=== PATIENT | female | born 1960 | race Caucasian/White ===

== ENCOUNTER 2022-06-07 11:01 | Inpatient (IN) ==
[2022-06-07] MEDS ORDERED: IOPAMIDOL 100 ML BOTTLE IV ONE (11:02)
--- NOTE | 2022-06-07 11:12 | Emergency Department Note ---
HPI General Chief complaint: Shortness of Breath/Dyspnea Stated complaint: oxygen check Time Seen by Provider: 06/07/22 11:11 Source: patient Mode of arrival: ambulatory Limitations: no limitations History of Present Illness HPI Narrative: Narrative: This patient presents with complaint of shortness of breath. Patient reports she has had gradually progressive symptoms over the last couple of weeks. Initially she had some upper congestion consistent with a cold. She did take 2 home COVID tests which were negative. She reports that her symptoms gradually seem to improve and she was able to return to work. Within a couple of days she seemed to have some symptoms settled into her chest consistent with a no nproductive, wet sounding cough. Since then she has had gradually worsening shortness of breath which has become so severe that she has been unable to complete simple tasks such as walking a few steps without having to stop and try and catch her breath. She denies having any chest pain other than some discomfort with episodes of coughing. She has not really had any productive cough. She has not felt febrile or chilled. She has no prior significant cardiac history other than hypertension and high cholesterol. She did smoke for several decades and quit about 5 to 6 years ago. She does see her doctor regularly and has never been diagnosed with COPD. She has no prior history of asthma. She has never had any significant episodes of pneumonia that she can recall. Patient does arrive here to the emergency department with room air saturations of 79% as well as tachycardia. Related Data Home Medications Medication Instructions Recorded Confirmed levothyroxine 88 mcg tablet 88 mcg PO HS 03/18/17 06/07/22 pioglitazone 30 mg tablet 30 mg PO DAILY 03/18/17 06/07/22 insulin aspart U-100 100 unit/mL See Rx Instructions subcut QDAY 04/08/18 06/07/22 subcutaneous solution (Novolog U-100 Insulin aspart) melatonin 5 mg tablet 5 mg PO HS 04/08/18 06/07/22 Lactobacillus rhamnosus GG 10 1 cap PO QDAY 04/30/18 06/07/22 billion cell capsule (Culturelle) ascorbic acid (vitamin C) 1,000 mg 2 g PO QDAY 04/30/18 06/07/22 tablet cinnamon bark 500 mg capsule 1,000 mg PO QDAY 04/30/18 06/07/22 cyanocobalamin (vitamin B-12) 1,000 mcg PO QDAY 04/30/18 06/07/22 1,000 mcg capsule insulin detemir U-100 100 unit/mL See Rx Instructions .Route .COMPLEX 04/30/18 06/07/22 subcutaneous solution valerian root 500 mg capsule 1,000 mg PO HS 04/30/18 06/07/22 amlodipine 5 mg tablet 5 mg PO QDAY 06/07/22 06/07/22 blood sugar diagnostic 06/07/22 06/07/22 citalopram 20 mg tablet 20 mg PO QDAY 06/07/22 06/07/22 insulin syringe-needle U-100 0.5 06/07/22 06/07/22 mL 30 gauge x 5/16" losartan 50 mg tablet 100 mg PO DAILY 06/07/22 06/07/22 ayoyoyhl-uiv-yartb ac 400 1 tab PO DAILY 06/07/22 06/07/22 mcg-calcium carb 500 mg-vit K1 20 mcg tablet omeprazole 40 mg capsule,delayed 40 mg PO QDAY 06/07/22 06/07/22 release psyllium husk 0.4 gram capsule 0.4 g PO QDAY PRN Constipation 06/07/22 06/07/22 (Metamucil) Allergies Allergy/AdvReac Type Severity Reaction Status Date / Time codeine AdvReac Intermediate Gastrointestinal Verified 06/07/22 11:12 Upset Review of Systems ROS ROS Narrative: Narrative: Pertinent positives and negatives as noted in HPI. All other systems reviewed and negative. 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) Infected abrasion of left foot (Acute) Infected abrasion of right foot (Acute) Pain, joint, knee, left (Chronic) Stopped smoking (Chronic) Abdominal wall hernia (Chronic) Reactive airway disease (Chronic) Occipital neuralgia (Chronic) Hyperkalemia (Chronic) Hypothyroidism (Chronic) Hypertension (Chronic) Osteopenia (Chronic) GERD (gastroesophageal reflux disease) (Chronic) Osteoarthritis (arthritis due to wear and tear of joints) (Chronic) Medical History Abdominal wall hernia GERD (gastroesophageal reflux disease) Hyperkalemia Hypertension Hypothyroidism senior care current use of insulin Occipital neuralgia Osteoarthritis (arthritis due to wear and tear of joints) Osteopenia Pain, joint, knee, left Reactive airway disease Stopped smoking White coat syndrome with diagnosis of hypertension Surgical History History of hernia surgery Spigelian History of hysterectomy History of repair of rotator cuff Hx of inguinal hernia surgery Right and Left Family History Mother Breast cancer H/O left mastectomy Diabetes Father , from leukemia at age 66 Leukemia Social History Smoking Status: Never smoker Alcohol Intake Frequency: does not drink Substance Use: does not use Exam Narrative Narrative: Narrative: Vital signs noted General: Moderate distress. Skin: Warm. Dry. No rash. Normal color. Eyes: PERRL. EOMI. Mouth: Membranes moist. Normal inspection. Neck: Good ROM. No meningeal signs. Supple. Cardiovascular: Tachycardia no murmur. Respiratory: Tachypnea. Decreased lung sounds throughout. Gastrointestinal: Abdomen soft. No tenderness. No distention. Normal bowel sounds. No rebound tenderness or guarding. Back: Normal inspection. No CVA tenderness. No midline tenderness. Extremities: No tenderness. No swelling. No erythema. No edema. Good peripheral pulses x 4 Neurological: No focal neurological deficits observed. Alert. Oriented x 3 General Limitations: no limitations Course Course Course Narrative: The following orders are placed and reviewed by myself: Patient placed on supplemental oxygen and is able to maintain O2 saturations above 90% at rest with 3 L via nasal cannula CBC and CHEM panel reviewed, white count elevated at 14,000. Lactic acid is below 2 Chest x-ray shows large consolidation to the right lower lobe as well as right upper lobe. Antibiotics are initiated after blood cultures are obtained. Patient medicated with azithromycin and Rocephin. EKG shows sinus tachycardia rate of 105. QRS complexes are narrow and at regular intervals. No ST elevation or depression noted. CTA chest is obtained due to concern for possible pulmonary embolism versus lung mass. CT report by radiology to be significant for right upper and lower lobe infiltrates. No pulm embolism is identified. Patient discussed with hospitalist service for admission of pneumonia with hypoxia. Vital Signs Vital signs: Vital Signs Temperature 99 F 06/07/22 11:10 Pulse Rate 114 H 03/03/23 11:10 Respiratory Rate 25 H 06/07/22 11:10 Blood Pressure 98/73 06/07/22 11:10 Pulse Oximetry (%) 79 L 06/07/22 11:10 Oxygen Delivery Method Room Air 06/07/22 11:10 Temperature 99 F 06/07/22 19:23 Pulse Rate 123 H 06/07/22 20:20 Respiratory Rate 26 H 06/07/22 20:20 Blood Pressure 125/64 06/07/22 19:23 Pulse Oximetry (%) 89 L 06/07/22 20:20 Oxygen Delivery Method Nasal Cannula 06/07/22 20:20 Oxygen Flow Rate (L/min) 3.5 06/07/22 20:20 MDM MDM Narrative Medical decision making narrative: Narrative: Lab Data 06/07/22 11:51 06/07/22 11:51 Labs: Lab Results 06/07/22 06/07/22 06/07/22 Range/Units 11:51 11:51 11:51 WBC 14.0 H (4.5-11.0) K/mcL RBC 4.34 (3.59-5.38) M/mcL Hgb 12.1 (11.2-15.7) g/dL Hct 37.5 (34.1-44.9) % MCV 86.4 (80.0-100.0) fL MCH 27.9 (26.0-34.0) pg MCHC 32.3 (31.0-36.0) g/dL RDW 16.2 H (11.5-14.5) % Plt Count 266 (140-440) K/mcL MPV 9.7 (8.8-12.5) fL Immature Gran % (Auto) 0.3 (0.0-0.5) % Neut % (Auto) 88.3 H (38.0-78.0) % Lymph % (Auto) 3.3 L (15.5-49.0) % Hawkins % (Auto) 7.1 (1.0-12.0) % Eos % (Auto) 0.6 (0.0-7.0) % Baso % (Auto) 0.4 (0.0-2.0) % Lymph # (Auto) 0.46 L (1.50-4.80) K/mcL Hawkins # (Auto) 0.99 H (0.10-0.90) K/mcL Eos # (Auto) 0.08 (0.00-0.70) K/mcL Baso # (Auto) 0.05 (0.00-0.30) K/mcL Immature Gran # 0.04 (0.00-0.05) K/mcl Absolute Neutrophils 12.36 H (1.80-8.00) K/mcL POC VBG pH (7.32-7.42) POC VBG pCO2 at Temp (41-51) POC VBG pO2 (25-40) POC VBG HCO3 (24-28) POC VBG Total CO2 (25-29) POC Venous O2 Sat (40-70) POC VBG Base Excess (-2-2) VBG Lactic Acid (0.5-2) Sodium 129 L (133-145) mmol/L Potassium 4.6 (3.3-5.1) mmol/L Chloride 92 L (96-108) mmol/L Carbon Dioxide 25 (22-30) mmol/L Anion Gap 12.0 (8.0-16.0) BUN 31 H (8-23) mg/dL Creatinine 1.0 (0.6-1.1) mg/dL GFR Calculation 60 Glucose 278 H (70-105) mg/dL Hemoglobin A1c (4.0-6.0) % Hgb Estim Average Glucose mg/dL Calcium 9.4 (8.6-10.4) mg/dL Total Bilirubin 0.3 (0.1-1.0) mg/dL AST 25 (<32) U/L ALT 19 (<40) U/L Alkaline Phosphatase 119 H (39-117) U/L Troponin T (<0.03) ng/mL C-Reactive Protein 15.60 H (0.03-0.80) mg/dL Total Protein 6.5 (5.9-8.4) gm/dL Albumin 3.4 (3.2-5.2) gm/dL Globulin 3.1 (2.2-3.7) gm/dL Albumin/Globulin Ratio 1.1 (1.0-2.3) Procalcitonin (<0.10) ng/mL 03/03/23 03/03/23 03/03/23 Range/Units 11:51 11:51 11:52 WBC (4.5-11.0) K/mcL RBC (3.59-5.38) M/mcL Hgb (11.2-15.7) g/dL Hct (34.1-44.9) % MCV (80.0-100.0) fL MCH (26.0-34.0) pg MCHC (31.0-36.0) g/dL RDW (11.5-14.5) % Plt Count (140-440) K/mcL MPV (8.8-12.5) fL Immature Gran % (Auto) (0.0-0.5) % Neut % (Auto) (38.0-78.0) % Lymph % (Auto) (15.5-49.0) % Hawkins % (Auto) (1.0-12.0) % Eos % (Auto) (0.0-7.0) % Baso % (Auto) (0.0-2.0) % Lymph # (Auto) (1.50-4.80) K/mcL Hawkins # (Auto) (0.10-0.90) K/mcL Eos # (Auto) (0.00-0.70) K/mcL Baso # (Auto) (0.00-0.30) K/mcL Immature Gran # (0.00-0.05) K/mcl Absolute Neutrophils (1.80-8.00) K/mcL POC VBG pH (7.32-7.42) POC VBG pCO2 at Temp (41-51) POC VBG pO2 (25-40) POC VBG HCO3 (24-28) POC VBG Total CO2 (25-29) POC Venous O2 Sat (40-70) POC VBG Base Excess (-2-2) VBG Lactic Acid (0.5-2) Sodium (133-145) mmol/L Potassium (3.3-5.1) mmol/L Chloride (96-108) mmol/L Carbon Dioxide (22-30) mmol/L Anion Gap (8.0-16.0) BUN (8-23) mg/dL Creatinine (0.6-1.1) mg/dL GFR Calculation Glucose (70-105) mg/dL Hemoglobin A1c 8.6 H (4.0-6.0) % Hgb Estim Average Glucose 200 mg/dL Calcium (8.6-10.4) mg/dL Total Bilirubin (0.1-1.0) mg/dL AST (<32) U/L ALT (<40) U/L Alkaline Phosphatase (39-117) U/L Troponin T < 0.01 (<0.03) ng/mL C-Reactive Protein (0.03-0.80) mg/dL Total Protein (5.9-8.4) gm/dL Albumin (3.2-5.2) gm/dL Globulin (2.2-3.7) gm/dL Albumin/Globulin Ratio (1.0-2.3) Procalcitonin 1.43 H (<0.10) ng/mL 06/07/22 Range/Units 12:01 WBC (4.5-11.0) K/mcL RBC (3.59-5.38) M/mcL Hgb (11.2-15.7) g/dL Hct (34.1-44.9) % MCV (80.0-100.0) fL MCH (26.0-34.0) pg MCHC (31.0-36.0) g/dL RDW (11.5-14.5) % Plt Count (140-440) K/mcL MPV (8.8-12.5) fL Immature Gran % (Auto) (0.0-0.5) % Neut % (Auto) (38.0-78.0) % Lymph % (Auto) (15.5-49.0) % Hawkins % (Auto) (1.0-12.0) % Eos % (Auto) (0.0-7.0) % Baso % (Auto) (0.0-2.0) % Lymph # (Auto) (1.50-4.80) K/mcL Hawkins # (Auto) (0.10-0.90) K/mcL Eos # (Auto) (0.00-0.70) K/mcL Baso # (Auto) (0.00-0.30) K/mcL Immature Gran # (0.00-0.05) K/mcl Absolute Neutrophils (1.80-8.00) K/mcL POC VBG pH 7.43 H (7.32-7.42) POC VBG pCO2 at Temp 39.6 L (41-51) POC VBG pO2 43 H (25-40) POC VBG HCO3 26.1 (24-28) POC VBG Total CO2 27.0 (25-29) POC Venous O2 Sat 80.0 H (40-70) POC VBG Base Excess 2.0 (-2-2) VBG Lactic Acid 0.6 (0.5-2) Sodium (133-145) mmol/L Potassium (3.3-5.1) mmol/L Chloride (96-108) mmol/L Carbon Dioxide (22-30) mmol/L Anion Gap (8.0-16.0) BUN (8-23) mg/dL Creatinine (0.6-1.1) mg/dL GFR Calculation Glucose (70-105) mg/dL Hemoglobin A1c (4.0-6.0) % Hgb Estim Average Glucose mg/dL Calcium (8.6-10.4) mg/dL Total Bilirubin (0.1-1.0) mg/dL AST (<32) U/L ALT (<40) U/L Alkaline Phosphatase (39-117) U/L Troponin T (<0.03) ng/mL C-Reactive Protein (0.03-0.80) mg/dL Total Protein (5.9-8.4) gm/dL Albumin (3.2-5.2) gm/dL Globulin (2.2-3.7) gm/dL Albumin/Globulin Ratio (1.0-2.3) Procalcitonin (<0.10) ng/mL Discharge Plan Patient/Caregiver Discharge Instructions Pt seen by PAPER CLEANER/PA only: Yes Clinical Impression: Pneumonia, Hypoxia Patient Disposition: Xfer As Outpt/Obs ([facility]) Discharge Date/Time: 06/07/22 18:49
[2022-06-07] MEDS ORDERED: IPRATROPIUM/ALBUTEROL 3 ML AMPUL.NEB NEB ONE (12:03)
[2022-06-07 12:54] LABS: Basophils # (Auto) 0.05 K/mcL (0.00-0.30); Basophils % (Auto) 0.4 % (0.0-2.0); Eosinophils # (Auto) 0.08 K/mcL (0.00-0.70); Eosinophils % (Auto) 0.6 % (0.0-7.0); Hematocrit 37.5 % (34.1-44.9); Hemoglobin 12.1 g/dL (11.2-15.7); Lymphocytes # (Auto) 0.46 K/mcL (1.50-4.80); Lymphocytes % (Auto) 3.3 % (15.5-49.0); Mean Cell Volume 86.4 fL (80.0-100.0); Mean Corpuscular HGB Conc 32.3 g/dL (31.0-36.0); Mean Platelet Volume 9.7 fL (8.8-12.5); Monocytes # (Auto) 0.99 K/mcL (0.10-0.90); Monocytes % (Auto) 7.1 % (1.0-12.0); Neutrophils % (Auto) 88.3 % (38.0-78.0); Platelet Count 266 K/mcL (140-440); RBC 4.34 M/mcL (3.59-5.38); Red Cell Distribution Width 16.2 % (11.5-14.5)
[2022-06-07] MEDS ORDERED: cefTRIAXone 1 GM VIAL IV ONE (12:58)
[2022-06-07] MEDS ORDERED: AZITHROMYCIN 500 MG in DEXTROSE 5% IN WATER 250 ML IV ONE (12:58)
--- NOTE | 2022-06-07 13:02 | XRay Report ---
CLINICAL INFORMATION: Hypoxia COMPARISON: Two-view chest x-ray 06/07/2008. TECHNIQUE: Portable FINDINGS: The heart size, mediastinum and pulmonary vessels are unremarkable. A 6 cm mass or masslike infiltrate has developed in the right perihilar region. Moderate curvilinear infiltrate or, less likely, infiltrate-like mass also seen in the right lung base.. There are no effusions. The bones and soft tissues are within normal limits. IMPRESSION: 6 cm mass versus masslike infiltrate in right perihilar region and a 8 cm curvilinear mass versus masslike infiltrate in the right lung base. Suggest chest CT Interpreted and Authenticated by: Franco Mcdermott 06/07/22
[2022-06-07 13:14] LABS: ALT/SGPT 19 U/L (<40); AST/SGOT 25 U/L (<32); Albumin 3.4 gm/dL (3.2-5.2); Albumin/Globulin Ratio 1.1 (1.0-2.3); Alkaline Phosphatase 119 U/L (39-117); Bilirubin,Total 0.3 mg/dL (0.1-1.0); Blood Urea Nitrogen 31 mg/dL (8-23); Calcium 9.4 mg/dL (8.6-10.4); Carbon Dioxide 25 mmol/L (22-30); Chloride 92 mmol/L (96-108); Globulin 3.1 gm/dL (2.2-3.7); Glomerular Filtration Rate 60; Glucose 278 mg/dL (70-105)
--- NOTE | 2022-06-07 15:13 | Cat Scan Report ---
CLINICAL INFORMATION: Possible right hilar mass on plain film. Shortness of breath and cough and fever COMPARISON: Plain film 06/07/2022 TECHNIQUE: 80ml of Isovue-370 were injected intravenously. Using SmartPrep to maximize pulmonary artery opacification, .625mm helical slices were obtained from the lung apices through the lung bases. Following reconstruction, 2.5 mm sagittal, coronal, and axial reformations were processed. The exam was reviewed at mediastinal, lung, and bone windows. The exam was performed using radiation dose optimization techniques including, but not limited to, automated exposure control, adjustment of the mA and/or kV according to patient size and use of iterative reconstruction technique. FINDINGS: Pulmonary parenchymal windows show mild centrilobular emphysema featuring chronic bronchitis with elevated lung via is wall thickening/dilatation of bronchi and multiple small bullae predominantly within the upper lobes. There is a moderate consolidated infiltrate, likely pneumonia, in the posterior segment of the left upper lobe. Infiltrate respects the major fissure which would militate against malignancy. A moderate lesion consolidated infiltrate is also present in the posterior and lateral basilar segments of the right lower lobe with a small rounded satellite infiltrate more superiorly. Very small patchy infiltrate is seen in the posterior basilar segment left lower lobe.. Pleural spaces are unremarkable-no effusions. Mediastinal windows show the heart is grossly normal in size and configuration. The pulmonary arteries are normal diameter and well-opacified without evidence of embolus. Thoracic aorta is also normal diameter and well-opacified. There are 4-5 mildly enlarged lymph nodes in the right hilum and pericarinal region ranging up to 18 mm. These likely represent reactive lymph nodes related to infection. Esophagus is grossly normal. The thyroid is unremarkable. Bones and soft tissues the chest wall are normal. Images through the superior abdomen are unremarkable. IMPRESSION: 1. No evidence of pulmonary embolus. 2. Moderate consolidated alveolar infiltrate in the posterior segment of the right upper lobe and moderate consolidated alveolar infiltrate in the posterior and lateral basilar segment of the right lower lobe. Suggest follow-up chest x-ray 2-3 weeks to ensure complete resolution. 3. Moderate centrilobular emphysema Interpreted and Authenticated by: Franco Mcdermott 06/07/22
[2022-06-07] MEDS ORDERED: 0.9 % SODIUM CHLORIDE 1,000 ML IV ONE (15:42)
--- NOTE | 2022-06-07 16:20 | Internal Med History&Physical ---
HPI History of Present Illness Patient information: Note initiated : 06/07/22 at 4:01 pm Service Date, if different from initiated Date: [] Patient: Rossana Rapp a 61 y/o F admitted on for oxygen check. Chief Complaint: [] History of present illness: Ms. Rapp is a 61 year old F Presents to the to the urgent care for rhinorrhea severe headache insomnia as well as increased cough and shortness of breath for the past 3 days and hypoxia. Patient was then sent to the ER for hypoxia. Patient has taken a home COVID test which were negative x2. Originally she had a cold about a week ago which improved and then she went back to work but within a couple days she seemed to worsen again And her cough worsened feeling like it went down into her chest. She became significantly short of breath with walking. She can hardly sleep and has developed severe headache from all the coughing, which coughing keeps her up at night. She was a former smoker but does not carry an official diagnosis of COPD. In the ED she had saturations of 79% with a leukocytosis. She was hyponatremic hypochloremic. She had elevated blood glucose. She was tachycardic and tachypneic. CTA of the chest was done given the masslike findings on chest x-ray. The CTA showed no PEs but did show moderate consolidated infiltrates in the upper lobe as well as the lower lobe of the right side. CT also showed moderate emphysema Flu/RSV/COVID negative in ED She did have fevers and chills with a cold but has not had any of those for the past couple days. She has some pleuritic chest pain Her cough is described as a phlegmy cough but she is unable to cough up anythi ng. Review of Systems: Pertinent positives as above. Denies fever/chills/nausea/vomiting/abdominal pain/diarrhea. Remaining 10 point review of system reviewed negative PHYSICAL EXAM General: Alert, Awake, No acute Distress Eyes/N/T: EOMI, no scleral icterus, PERRL, dry MM Head/Neck: neck supple, full ROM, normocephalic atraumatic CV: RRR, No murmurs, normal s1/s2 Pulm: Diminished b/l but especially on the right, right-sided Rales/rhonchi, no wheezing/rhonchi/rales, no respiratory distress Abd: soft, nontender, +BS x4 Ext: no clubbing/cyanosis/edema, nontender Neuro: Alert, no focal deficits, moves all extremities, CN 2-12 grossly intact, sensations intact b/l upper/lower Psychiatric: Skin: warm/dry, normal color PFSH PFSH All Active Problems 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) Infected abrasion of left foot (Acute) Infected abrasion of right foot (Acute) Pain, joint, knee, left (Chronic) Stopped smoking (Chronic) Abdominal wall hernia (Chronic) Reactive airway disease (Chronic) Occipital neuralgia (Chronic) Hyperkalemia (Chronic) Hypothyroidism (Chronic) Hypertension (Chronic) Osteopenia (Chronic) GERD (gastroesophageal reflux disease) (Chronic) Osteoarthritis (arthritis due to wear and tear of joints) (Chronic) Medical History Abdominal wall hernia GERD (gastroesophageal reflux disease) Hyperkalemia Hypertension Hypothyroidism residential current use of insulin Occipital neuralgia Osteoarthritis (arthritis due to wear and tear of joints) Osteopenia Pain, joint, knee, left Reactive airway disease Stopped smoking White coat syndrome with diagnosis of hypertension Surgical History History of hernia surgery Spigelian History of hysterectomy History of repair of rotator cuff Hx of inguinal hernia surgery Right and Left Family History Mother Breast cancer H/O left mastectomy Diabetes Father , from leukemia at age 66 Leukemia Social History marital status: single occupational status: employed smoking status: Never smoker alcohol intake frequency: does not drink substance use type: does not use MEDS/ALLERGIES Home Medications and Allergies Home Medications Medication Instructions Recorded Confirmed Type levothyroxine 88 mcg tablet 88 mcg PO HS 03/18/17 06/07/22 History pioglitazone 30 mg tablet 30 mg PO DAILY 03/18/17 06/07/22 History blood sugar diagnostic (OneTouch #10 ea 04/08/18 06/07/22 History Ultra Blue Test Strip) insulin aspart U-100 100 unit/mL See Rx Instructions subcut QDAY 04/08/18 06/07/22 History subcutaneous solution (Novolog U-100 Insulin aspart) insulin syr/ndl U100 half madeleine 0.3 #100 ea 04/08/18 06/07/22 History mL 31 gauge x 5/16" insulin syringes (disposable) miscellaneous 04/08/18 06/07/22 History melatonin 5 mg tablet 5 mg PO HS 04/08/18 06/07/22 History Lactobacillus rhamnosus GG 10 1 cap PO QDAY 04/30/18 06/07/22 History billion cell capsule (Culturelle) Sleepy Time Herbal Supplement PO QHS 04/30/18 06/07/22 History ascorbic acid (vitamin C) 1,000 mg 2 g PO QDAY 04/30/18 06/07/22 History tablet cinnamon bark 500 mg capsule 1,000 mg PO QDAY 04/30/18 06/07/22 History cyanocobalamin (vitamin B-12) 1,000 mcg PO QDAY 04/30/18 06/07/22 History 1,000 mcg capsule insulin detemir U-100 100 unit/mL See Rx Instructions .Route .COMPLEX 04/30/18 06/07/22 History subcutaneous solution omega-3 950 mg-dha 320 mg-epa 630 3 cap PO QDAY 04/30/18 06/07/22 History mg-fish oil 1,360 mg capsule valerian root 500 mg capsule 1,000 mg PO HS 04/30/18 06/07/22 History psypovjqlyml-nzxnvvak-ubcrmqo-folic tab PO 06/02/18 06/07/22 History acid 400 mcg-vit K1 20 mcg tablet (One-A-Day Women's 50 Plus) amlodipine 5 mg tablet 5 mg PO QDAY 06/07/22 06/07/22 History citalopram 20 mg tablet 20 mg PO QDAY 06/07/22 06/07/22 History losartan 50 mg tablet 50 mg PO BID 06/07/22 06/07/22 History omeprazole 40 mg capsule,delayed 40 mg PO QDAY 06/07/22 06/07/22 History release psyllium [Metamucil] PO QDAY PRN 06/07/22 06/07/22 History Allergies Allergy/AdvReac Type Severity Reaction Status Date / Time codeine AdvReac Intermediate Gastrointestinal Verified 06/07/22 11:12 Upset EXAM Constitutional Vitals: Temp Pulse Resp BP Pulse Ox O2 Del Method O2 Flow Rate 99 F 95 H 16 105/44 94 Nasal Cannula 4 06/07/22 11:10 06/07/22 15:31 06/07/22 15:31 06/07/22 15:31 06/07/22 15:31 06/07/22 13:40 06/07/22 13:40 DATA Data Completed and Pending Labs: Labs from last 24 hours 06/07/22 06/07/22 06/07/22 12:01 11:52 11:51 WBC RBC Hgb Hct MCV MCH MCHC RDW Plt Count MPV Immature Gran % (Auto) Neut % (Auto) Lymph % (Auto) [place] % (Auto) Eos % (Auto) Baso % (Auto) Lymph # (Auto) [place] # (Auto) Eos # (Auto) Baso # (Auto) Immature Gran # Absolute Neutrophils POC VBG pH 7.43 H POC VBG pCO2 at Temp 39.6 L POC VBG pO2 43 H POC VBG HCO3 26.1 POC VBG Total CO2 27.0 POC Venous O2 Sat 80.0 H POC VBG Base Excess 2.0 VBG Lactic Acid 0.6 Sodium 129 L Potassium 4.6 Chloride 92 L Carbon Dioxide 25 Anion Gap 12.0 BUN 31 H Creatinine 1.0 GFR Calculation 60 Glucose 278 H Calcium 9.4 Total Bilirubin 0.3 AST 25 ALT 19 Alkaline Phosphatase 119 H Troponin T < 0.01 Total Protein 6.5 Albumin 3.4 Globulin 3.1 Albumin/Globulin Ratio 1.1 06/07/22 11:51 WBC 14.0 H RBC 4.34 Hgb 12.1 Hct 37.5 MCV 86.4 MCH 27.9 MCHC 32.3 RDW 16.2 H Plt Count 266 MPV 9.7 Immature Gran % (Auto) 0.3 Neut % (Auto) 88.3 H Lymph % (Auto) 3.3 L [place] % (Auto) 7.1 Eos % (Auto) 0.6 Baso % (Auto) 0.4 Lymph # (Auto) 0.46 L [place] # (Auto) 0.99 H Eos # (Auto) 0.08 Baso # (Auto) 0.05 Immature Gran # 0.04 Absolute Neutrophils 12.36 H POC VBG pH POC VBG pCO2 at Temp POC VBG pO2 POC VBG HCO3 POC VBG Total CO2 POC Venous O2 Sat POC VBG Base Excess VBG Lactic Acid Sodium Potassium Chloride Carbon Dioxide Anion Gap BUN Creatinine GFR Calculation Glucose Calcium Total Bilirubin AST ALT Alkaline Phosphatase Troponin T Total Protein Albumin Globulin Albumin/Globulin Ratio A/P Narrative A/P Narrative: A: *Acute hypoxic respiratory failure: *Pneumonia (right-sided): *Sepsis: *Volume depletion: *Hyponatremia: *DM: with hyperglycemia on admit -a1c *CKD II: *HTN: *COPD(not on O2@home): former smoker *Hypothyroid: Continue levothyroxine *GERD: *Depression: * P: -IV abx, pending BC/SC -francisca pct/crp, check strep/legionella -O2 supp, wean as able -IS/Acapella, prn nebs, RT -IVF, monitor renal fxn, uop - -Continue home Norvasc/ARB -Basal and SSI, check a1c -Home medication reconciliation -PT/OT -f/u imaging in 2-3 weeks to follow resolution of CT findings -ppx: Lovenox / home ppi Time Spent With Patient Time: Total time spent is greater than 50% in coordination of care (as documented) at patient's floor/unit and/or counseling patient: Initial: Total time with patient: 75 - 90 minutes
[2022-06-07] MEDS ORDERED: INSULIN LISPRO 1 UNIT/0.01 ML UNIT SQ ONE (17:00)
[2022-06-07] MEDS ORDERED: 0.9 % SODIUM CHLORIDE 1,000 ML IV SCH (18:52)
[2022-06-07] MEDS ORDERED: POLYETHYLENE GLYCOL 3350 17 GM PACKET PO PRN (18:52)
[2022-06-07] MEDS ORDERED: SENNOSIDES 1 TABLET PO PRN (18:52)
[2022-06-07] MEDS ORDERED: POTASSIUM CHLORIDE 40 MEQ in DEXTROSE 5% IN WATER 500 ML IV PRN (18:52)
[2022-06-07] MEDS ORDERED: DEXTROSE 31 GM ORAL.SUSP PO PRN (18:52)
[2022-06-07] MEDS ORDERED: IPRATROPIUM/ALBUTEROL 3 ML AMPUL.NEB NEB PRN (18:52)
[2022-06-07] MEDS ORDERED: cefTRIAXone 1 GM in DEXTROSE 5% IN WATER 50 ML IV SCH (18:52)
[2022-06-07] MEDS ORDERED: POTASSIUM CHLORIDE 20 MEQ TABLET PO PRN ×2 (18:52)
[2022-06-07] MEDS ORDERED: HYDROcodone/APAP 5/325MG TABLET PO PRN (18:52)
[2022-06-07] MEDS ORDERED: ONDANSETRON 4 MG/2 ML VIAL IV PRN (18:52)
[2022-06-07] MEDS ORDERED: ACETAMINOPHEN 325 MG TABLET PO PRN (18:52)
[2022-06-07] MEDS ORDERED: MAGNESIUM SULFATE 2 GM/50 ML BAG IV PRN (18:52)
[2022-06-07] MEDS ORDERED: DEXTROSE 50% 50 ML VIAL IV PRN (18:52)
[2022-06-07 19:42] LABS: Estimated Average Glucose(eAG) 200 mg/dL; Hemoglobin A1C 8.6 % Hgb (4.0-6.0)
[2022-06-07] MEDS: IPRATROPIUM/ALBUTEROL 3 ML AMPUL.NEB NEB SCH (20:16)
[2022-06-07] MEDS: MELATONIN 3 MG TABLET PO SCH (20:44)
[2022-06-07] MEDS: INSULIN LISPRO 1 UNIT/0.01 ML UNIT SQ SCH ×2 (20:45→22:51)
[2022-06-07] MEDS: 0.9 % SODIUM CHLORIDE 10 ML SYRINGE IV SCH (20:46)
[2022-06-07] MEDS: guaiFENesin/CODEINE 10 ML UDC PO PRN (20:46)
[2022-06-08] MEDS: IPRATROPIUM/ALBUTEROL 3 ML AMPUL.NEB NEB SCH ×3 (02:49→20:04)
[2022-06-08] MEDS: 0.9 % SODIUM CHLORIDE 10 ML SYRINGE IV SCH ×3 (06:06→20:35)
[2022-06-08] MEDS: guaiFENesin/CODEINE 10 ML UDC PO PRN (06:06)
[2022-06-08] MEDS: cefTRIAXone 1 GM VIAL IV SCH (06:06)
[2022-06-08 06:33] LABS: Basophils # (Auto) 0.04 K/mcL (0.00-0.30); Basophils % (Auto) 0.3 % (0.0-2.0); Eosinophils # (Auto) 0.04 K/mcL (0.00-0.70); Eosinophils % (Auto) 0.3 % (0.0-7.0); Hematocrit 35.6 % (34.1-44.9); Hemoglobin 11.2 g/dL (11.2-15.7); Lymphocytes # (Auto) 1.06 K/mcL (1.50-4.80); Lymphocytes % (Auto) 8.8 % (15.5-49.0); Mean Cell Volume 88.6 fL (80.0-100.0); Mean Corpuscular HGB Conc 31.5 g/dL (31.0-36.0); Monocytes # (Auto) 1.45 K/mcL (0.10-0.90); Neutrophils % (Auto) 78.3 % (38.0-78.0); Platelet Count 266 K/mcL (140-440); RBC 4.02 M/mcL (3.59-5.38); Red Cell Distribution Width 16.4 % (11.5-14.5); WBC 12.1 K/mcL (4.5-11.0)
[2022-06-08 07:26] LABS: ALT/SGPT 37 U/L (<40); AST/SGOT 53 U/L (<32); Albumin 3.2 gm/dL (3.2-5.2); Albumin/Globulin Ratio 1.1 (1.0-2.3); Alkaline Phosphatase 149 U/L (39-117); Bilirubin,Direct < 0.2 mg/dL (0-0.3); Bilirubin,Total 0.3 mg/dL (0.1-1.0); Blood Urea Nitrogen 55 mg/dL (8-23); Calcium 8.9 mg/dL (8.6-10.4); Carbon Dioxide 19 mmol/L (22-30); Chloride 92 mmol/L (96-108); Globulin 2.8 gm/dL (2.2-3.7); Glomerular Filtration Rate 37; Glucose 396 mg/dL (70-105); Lactate Dehydrogenase 181 U/L (135-225); Triglycerides 93 mg/dL (<150); Uric Acid 6.6 mg/dL (2.5-8.0)
--- NOTE | 2022-06-08 07:30 | Internal Med Progress Note ---
SUBJECTIVE Subjective Patient information: Note initiated : 06/08/22 at 7:25 am Service Date, if different from initiated Date: [] Patient: Rossana Rapp a 61 y/o F admitted on 06/07/22 for oxygen check. Chief Complaint: [] Interval history: History of present illness: Ms. Rapp is a 61 year old F Presents to the to the urgent care for rhinorrhea severe headache insomnia as well as increased cough and shortness of breath for the past 3 days and hypoxia. Patient was then sent to the ER for hypoxia. Patient has taken a home COVID test which were negative x2. Originally she had a cold about a week ago which improved and then she went back to work but within a couple days she seemed to worsen again And her cough worsened feeling like it went down into her chest. She became significantly short of breath with walking. She can hardly sleep and has developed severe headache from all the coughing, which coughing keeps her up at night. She was a former smoker but does not carry an official diagnosis of COPD. In the ED she had saturations of 79% with a leukocytosis. She was hyponatremic hypochloremic. She had elevated blood glucose. She was tachycardic and tachypneic. CTA of the chest was done given the masslike findings on chest x-ray. The CTA showed no PEs but did show moderate consolidated infiltrates in the upper lobe as well as the lower lobe of the right side. CT also showed moderate emphysema Flu/RSV/COVID negative in ED She did have fevers and chills with a cold but has not had any of those for the past couple days. She has some pleuritic chest pain Her cough is described as a phlegmy cough but she is unable to cough up anything. 3/4 Still quite short of breath. Headache from cough which is slowly improving. Still tachycardic and tachypneic. On 2 to 3 L of oxygen. Leukocytosis. Acute kidney injury noted today. Acidosis. Elevated blood glucose and trying to clarify home insulin to start basal. Review of Systems: denies fever/chills/nausea/vomiting/chest or abdominal pain/cough/dyspnea/diarrhea. Otherwise see above. PHYSICAL EXAM General: Alert, Awake, No acute Distress Eyes/N/T: EOMI, no scleral icterus, PERRL, dry MM Head/Neck: neck supple, full ROM, CV: RRR, No murmurs, Pulm: Diminished b/l but more on right, right-sided Rales/rhonchi better, no wheezing no respiratory distress Abd: soft, nontender, +BS x4 Ext: no clubbing/cyanosis/edema, nontender Neuro: Alert, no focal deficits, moves all extremities, sensations intact b/l upper/lower Psychiatric: Skin: warm/dry, normal color Constitutional Vitals: Vital Signs Temp Pulse Resp BP Pulse Ox O2 Del Method O2 Flow Rate 98.6 F 93 H 19 126/60 94 Nasal Cannula 2.5 06/08/22 03:05 06/08/22 03:05 06/08/22 03:05 06/08/22 03:05 06/08/22 03:05 06/08/22 03:05 06/08/22 03:05 Period Temp Pulse Resp BP Sys/Ibarra Pulse Ox O2 Del Method O2 Flow Rate Last 24 Hr 98.6 F-99.3 F 25-123 16-40 85-148/44-104 79-99 Nasal Cannula- Room Air 2-4 Intake and Output 06/07/22 06/08/22 06/08/22 19:59 03:59 11:59 Intake Total 1250 800 Output Total 200 Balance 1250 600 Weight 56.019 kg 56.88 kg Intake & Output: Intake & Output 06/07/22 06/08/22 06/08/22 19:59 03:59 11:59 Intake Total 1250 800 Output Total 200 Balance 1250 600 Weight 56.019 kg 56.88 kg Intake: IV 1250 Sodium Chloride 0.9% 1,000 ml @ 1000 Wide Open IV [facility] Rx#: [id number] Zithromax 500 mg In Dextrose 5% 250 in Water 250 ml @ 250 mls/hr IV ONCE ONE Rx#:[id number] Oral 800 Output: Void Amount 200 Other: Urine Appearance Clear Clear Urine Color Yellow Yellow Urine Odor Normal Normal OBJ DATA Labs 06/08/22 05:52 06/07/22 11:51 Labs: Abnormal Lab Results 06/08/22 06/07/22 06/07/22 05:52 12:01 11:51 WBC 12.1 H RDW 16.4 H Neut % (Auto) 78.3 H Lymph % (Auto) 8.8 L Lymph # (Auto) 1.06 L [place] # (Auto) 1.45 H Absolute Neutrophils 9.45 H POC VBG pH 7.43 H POC VBG pCO2 at Temp 39.6 L POC VBG pO2 43 H POC Venous O2 Sat 80.0 H Sodium Chloride BUN Glucose Hemoglobin A1c 8.6 H Alkaline Phosphatase C-Reactive Protein Procalcitonin 06/07/22 06/07/22 06/07/22 11:51 11:51 11:51 WBC RDW Neut % (Auto) Lymph % (Auto) Lymph # (Auto) [place] # (Auto) Absolute Neutrophils POC VBG pH POC VBG pCO2 at Temp POC VBG pO2 POC Venous O2 Sat Sodium 129 L Chloride 92 L BUN 31 H Glucose 278 H Hemoglobin A1c Alkaline Phosphatase 119 H C-Reactive Protein 15.60 H Procalcitonin 1.43 H 06/07/22 11:51 WBC 14.0 H RDW 16.2 H Neut % (Auto) 88.3 H Lymph % (Auto) 3.3 L Lymph # (Auto) 0.46 L [place] # (Auto) 0.99 H Absolute Neutrophils 12.36 H POC VBG pH POC VBG pCO2 at Temp POC VBG pO2 POC Venous O2 Sat Sodium Chloride BUN Glucose Hemoglobin A1c Alkaline Phosphatase C-Reactive Protein Procalcitonin Meds: Medications Acetaminophen (Acetaminophen 325 Mg Tablet) 650 mg PO Q6HP PRN; Protocol PRN Reason: Per Pain Protocol/Fever > 101 Hydrocodone Bitart/Acetaminophen (Hydrocodone/Apap 5/325mg Tablet) 1 tab PO Q4HP PRN PRN Reason: PAIN LEVEL 3-6 Albuterol/Ipratropium (Ipratropium/Albuterol 3 Ml Ampul.Neb) 3 ml NEB Q8H [facility] Last Admin: 06/08/22 02:49 Dose: 3 ml Albuterol/Ipratropium (Ipratropium/Albuterol 3 Ml Ampul.Neb) 3 ml NEB Q4HP PRN PRN Reason: Shortness Of Breath Ceftriaxone Sodium (Ceftriaxone 1 Gm Vial) 1 gm IV Q24H [facility] Last Admin: 06/08/22 06:06 Dose: 1 gm Dextrose (Dextrose 50% 50 Ml Vial) 0 ml IV UD PRN PRN Reason: Per Sliding Scale Diagnostic Test (Pha) (Accu-Chek 1 Each Strip) 1 each FS ACHS [facility] Last Admin: 06/07/22 22:40 Dose: 1 each Diphenhydramine HCl (Diphenhydramine 25 Mg Capsule) 25 mg PO HSP PRN PRN Reason: Insomnia Enoxaparin Sodium (Enoxaparin 40 Mg/0.4 Ml Syringe) 40 mg SQ DAILY [facility] Glucose (Dextrose 31 Gm Oral.Susp) 15 gm PO PRN PRN PRN Reason: Hypoglycemia Guaifenesin/Codeine Phosphate (Guaifenesin/Codeine 10 Ml Udc) 10 ml PO Q4HP PRN PRN Reason: Cough Last Admin: 06/08/22 06:06 Dose: 10 ml Azithromycin 500 mg/ Dextrose 250 mls @ 250 mls/hr IV Q24H [facility]; Protocol Stop: 06/09/22 09:59 Potassium Chloride 40 meq/ (Dextrose) 520 mls @ 130 mls/hr IV UD PRN PRN Reason: Potassium < 3 Magnesium Sulfate (Magnesium Sulfate) 2 gm in 50 mls @ 50 mls/hr IV UD PRN PRN Reason: Magnesium </= 1.6 Sodium Chloride (Sodium Chloride 0.9%) 1,000 mls @ 75 mls/hr IV .[id number] [facility] Stop: 06/08/22 08:11 Last Admin: 06/07/22 20:44 Dose: 75 mls/hr Insulin Human Lispro (Insulin Lispro 1 Unit/0.01 Ml Unit) 0 unit SQ ACHS [facility]; Protocol Last Admin: 06/07/22 22:51 Dose: 10 units Melatonin (Melatonin 3 Mg Tablet) 3 mg PO QHS [facility] Last Admin: 06/07/22 20:44 Dose: 3 mg Ondansetron HCl (Ondansetron 4 Mg/2 Ml Vial) 4 mg IV Q4HP PRN PRN Reason: Nausea And Vomiting Polyethylene Glycol (Polyethylene Glycol 3350 17 Gm Packet) 17 gm PO DAILYP PRN PRN Reason: Constipation Potassium Chloride (Potassium Chloride 20 Meq Tablet) 40 meq PO UD PRN PRN Reason: Potssium is 3-3.5 Potassium Chloride (Potassium Chloride 20 Meq Tablet) 40 meq PO UD PRN PRN Reason: Potassium < 3 Senna (Sennosides 1 Tablet) 2 tab PO DAILYP PRN PRN Reason: Constipation Sodium Chloride (0.9 % Sodium Chloride 10 Ml Syringe) 10 ml IV Q8 [facility] Last Admin: 06/08/22 06:06 Dose: 10 ml A/P Narrative A/P Narrative: A: *Acute hypoxic respiratory failure: -on 3-4L NC *Pneumonia (right-sided): -strep ur ag neg *Bacteremia(GPC in pairs): 2/2 above *Sepsis: leukocytosis *Volume depletion: *Hyponatremia: *NIKOLAS on CKD II: *Met acidosis: *DM: with hyperglycemia on admit -a1c 8.6 *HTN: *COPD(not on O2@home): former smoker *Hypothyroid: Continue levothyroxine *GERD: *Depression: cont ssri P: -IV abx, pending BC/SC, serial BC, mrsa screen -fr[place] pct/crp, check strep/legionella -O2 supp, wean as able -IS/Acapella, prn nebs, RT -IVF, uop -monitor renal fxn, check ua, renal u/s, urine studies -Continue home Norvasc, hold ARB for nikolas -Basal and SSI, -PT/OT -f/u imaging in 2-3 weeks to follow resolution of CT findings -ppx: Lovenox / home ppi DNR Time Spent With Patient Time: Total time spent is greater than 50% in coordination of care (as documented) at patient's floor/unit and/or counseling patient: Subsequent: Total time with patient: 50 - 65 Minutes QUALITY VTE Deep Vein Thrombosis/Pulmonary Embolism Present on Admission: No
[2022-06-08] MEDS: amLODIPine 5 MG TABLET PO SCH (08:07)
[2022-06-08] MEDS: SODIUM BICARBONATE 650 MG TABLET PO SCH ×3 (08:07→20:34)
[2022-06-08] MEDS: OMEPRAZOLE 20 MG CAPSULE PO SCH (08:07)
[2022-06-08] MEDS: CITALOPRAM 20 MG TABLET PO SCH (08:07)
[2022-06-08] MEDS: INSULIN LISPRO 1 UNIT/0.01 ML UNIT SQ SCH ×6 (08:07→20:34)
[2022-06-08] MEDS: ENOXAPARIN 40 MG/0.4 ML SYRINGE SQ SCH (08:08)
[2022-06-08] MEDS ORDERED: AZITHROMYCIN 500 MG in DEXTROSE 5% IN WATER 250 ML IV SCH (09:00)
[2022-06-08] MEDS: INSULIN GLARGINE, HUMAN 1 UNIT/0.01 ML SQ SCH ×2 (10:05→20:35)
--- NOTE | 2022-06-08 12:23 | Ultrasound Report ---
CLINICAL INFORMATION: Acute renal failure COMPARISON: 05/01/2018 FINDINGS: Both kidneys are normal and symmetric in size, position, and configuration: The right is 11.4 x 5.6 cm and the left is 11.0 x 5.8 cm. Both kidneys are moderately hyperechoic compatible with medical renal disease. This has progressed from the previous exam 1.6 cm simple cyst present in the superior pole left kidney 1.3 cm simple cyst mid left kidney. No solid lesions, stones or hydronephrosis.. The arterial blood flow is grossly normal to both kidneys on color Doppler. Urinary bladder volume is 25 cc with no postvoid residual residual. No focal bladder lesions. IMPRESSION: Moderately hyperechoic kidneys compatible with medical renal disease. Interpreted and Authenticated by: Franco Mcdermott 06/08/22
[2022-06-08 12:41] LABS: Appearance,Urine CLOUDY (Clear); Bilirubin,Urine Negative (Negative); Color,Urine YELLOW; Culture Indicated,Urine yes; Glucose,Urine (UA) 150 mg/dL (Negative); Ketones,Urine 20 mg/dL (Negative); Leukocyte Esterase,Urine 500 /uL (Negative); Mucus,Urine FEW /hpf; Nitrate,Urine Negative (Negative); Protein,Urine Negative (Negative); Urine Blood 0.03 mg/dL (Negative); Urine Hyaline Cast 4 /lph (0-2); Urine RBC 4 /hpf (0-3); Urine Squamous Epithelial Cell < 1 /hpf (0-4); Urine Transitional Epi Cells < 1 /hpf (0-2); Urine WBC 170 /hpf (0-4); Urobilinogen,Urine Negative
[2022-06-08 12:54] LABS: Sodium, Urine Random 21 mmol/L
[2022-06-08] MEDS ORDERED: 0.9 % SODIUM CHLORIDE 1,000 ML IV SCH (13:00)
[2022-06-08] MEDS: diphenhydrAMINE 25 MG CAPSULE PO PRN (20:33)
[2022-06-08] MEDS: LEVOTHYROXINE 88 MCG TABLET PO SCH (20:33)
[2022-06-08] MEDS: MELATONIN 3 MG TABLET PO SCH (20:34)
[2022-06-08] MEDS ORDERED: MELATONIN 3 MG TABLET PO SCH (21:00)
[2022-06-08] MEDS ORDERED: QUEtiapine 25 MG TABLET PO ONE (22:56)
[2022-06-08] MEDS ORDERED: OLANZapine 5 MG TABLET PO PRN (22:58)
[2022-06-08] MEDS ORDERED: QUEtiapine 25 MG TABLET ONE (23:05)
[2022-06-09] MEDS ORDERED: OLANZapine 2.5 MG TABLET PO ONE (00:18)
[2022-06-09] MEDS: OLANZapine 5 MG TABLET PO PRN ×2 (00:21→07:49)
[2022-06-09] MEDS: IPRATROPIUM/ALBUTEROL 3 ML AMPUL.NEB NEB SCH ×3 (03:23→19:25)
[2022-06-09] MEDS: cefTRIAXone 1 GM VIAL IV SCH (05:50)
[2022-06-09] MEDS: 0.9 % SODIUM CHLORIDE 10 ML SYRINGE IV SCH ×3 (05:50→20:58)
[2022-06-09 07:09] LABS: Basophils # (Auto) 0.05 K/mcL (0.00-0.30); Basophils % (Auto) 0.5 % (0.0-2.0); Eosinophils # (Auto) 0.19 K/mcL (0.00-0.70); Hematocrit 36.4 % (34.1-44.9); Hemoglobin 11.4 g/dL (11.2-15.7); Lymphocytes % (Auto) 12.6 % (15.5-49.0); Mean Cell Volume 88.8 fL (80.0-100.0); Mean Corpuscular HGB Conc 31.3 g/dL (31.0-36.0); Mean Platelet Volume 9.6 fL (8.8-12.5); Monocytes # (Auto) 1.07 K/mcL (0.10-0.90); Monocytes % (Auto) 11.3 % (1.0-12.0); Neutrophils % (Auto) 73.1 % (38.0-78.0); Platelet Count 308 K/mcL (140-440); Red Cell Distribution Width 16.3 % (11.5-14.5); WBC 9.5 K/mcL (4.5-11.0)
[2022-06-09] MEDS: INSULIN LISPRO 1 UNIT/0.01 ML UNIT SQ SCH ×4 (07:11→20:57)
[2022-06-09] MEDS: OMEPRAZOLE 20 MG CAPSULE PO SCH (07:14)
--- NOTE | 2022-06-09 07:35 | Internal Med Progress Note ---
SUBJECTIVE Subjective Patient information: Note initiated : 06/09/22 at 7:28 am Service Date, if different from initiated Date: [] Patient: Rossana Rapp a 61 y/o F admitted on 06/07/22 for oxygen check. Chief Complaint: [] Interval history: History of present illness: Ms. Rapp is a 61 year old F Presents to the to the urgent care for rhinorrhea severe headache insomnia as well as increased cough and shortness of breath for the past 3 days and hypoxia. Patient was then sent to the ER for hypoxia. Patient has taken a home COVID test which were negative x2. Originally she had a cold about a week ago which improved and then she went back to work but within a couple days she seemed to worsen again And her cough worsened feeling like it went down into her chest. She became significantly short of breath with walking. She can hardly sleep and has developed severe headache from all the coughing, which coughing keeps her up at night. She was a former smoker but does not carry an official diagnosis of COPD. In the ED she had saturations of 79% with a leukocytosis. She was hyponatremic hypochloremic. She had elevated blood glucose. She was tachycardic and tachypneic. CTA of the chest was done given the masslike findings on chest x-ray. The CTA showed no PEs but did show moderate consolidated infiltrates in the upper lobe as well as the lower lobe of the right side. CT also showed moderate emphysema Flu/RSV/COVID negative in ED She did have fevers and chills with a cold but has not had any of those for the past couple days. She has some pleuritic chest pain Her cough is described as a phlegmy cough but she is unable to cough up anything. 3/4 Still quite short of breath. Headache from cough which is slowly improving. Still tachycardic and tachypneic. On 2 to 3 L of oxygen. Leukocytosis. Acute kidney injury noted today. Acidosis. Elevated blood glucose and trying to clarify home insulin to start basal. 3/5 Patient agitated and confused overnight. Needed sedation to undergo CT brain this morning. Patient sleeping now. Still on 3 L with sats mid 90s and can likely titrate down. Hyponatremia improved but renal function no improvement. Acidosis improved. Review of Systems: Unable to obtain due to sedation PHYSICAL EXAM General: Sleeping, No acute Distress Eyes/N/T: no scleral icterus, PERRL, Head/Neck: neck supple, full ROM, CV: RRR, No murmurs, Pulm: Diminished b/l but more on right, right-sided Rales/rhonchi better, no wheezing no respiratory distress Abd: soft, nontender, +BS x4 Ext: no clubbing/cyanosis/edema, nontender Neuro: Sleeping status post sedation, moves all extremities spontaneously, agitated and impulsive this morning prior to sedation Psychiatric: Skin: warm/dry, normal color Constitutional Vitals: Vital Signs Temp Pulse Resp BP Pulse Ox O2 Del Method O2 Flow Rate 98.1 F 97 H 16 157/72 94 Nasal Cannula 3 06/09/22 06:49 06/09/22 06:49 06/09/22 06:49 06/09/22 06:49 06/09/22 06:49 06/09/22 06:49 06/09/22 06:49 Period Temp Pulse Resp BP Sys/Ibarra Pulse Ox O2 Del Method O2 Flow Rate Last 24 Hr 97.5 F-98.4 F 82-109 16-24 100-157/54-78 90-96 Nasal Cannula- Nasal Cannula 2-3 Intake and Output 06/08/22 06/09/22 06/09/22 19:59 03:59 11:59 Intake Total 1600 1600 Output Total 275 450 Balance 1325 1150 Weight 58.559 kg Intake & Output: Intake & Output 06/08/22 06/09/22 06/09/22 19:59 03:59 11:59 Intake Total 1600 1600 Output Total 275 450 Balance 1325 1150 Weight 58.559 kg Intake: IV 1000 1000 Sodium Chloride 0.9% 1,000 ml @ 1000 1000 125 mls/hr IV .Q8H [facility] Rx#: [id number] Oral 600 600 Output: Void Amount 275 450 Other: Meal Dinner Percent of Meal Consumed 100% Feeding Ability Independent Urine Appearance Cloudy Clear Urine Color Yellow Yellow Urine Odor Normal # Voids 2 1 OBJ DATA Labs 06/09/22 06:16 06/08/22 05:52 Labs: Abnormal Lab Results 06/09/22 06/08/22 06/08/22 06:16 10:20 05:52 WBC RDW 16.3 H Neut % (Auto) Lymph % (Auto) 12.6 L Lymph # (Auto) 1.20 L [place] # (Auto) 1.07 H Absolute Neutrophils POC VBG pH POC VBG pCO2 at Temp POC VBG pO2 POC Venous O2 Sat Sodium 129 L Chloride 92 L Carbon Dioxide 19 L Anion Gap 18.0 H BUN 55 H Creatinine 1.5 H Glucose 396 H Hemoglobin A1c AST 53 H Alkaline Phosphatase 149 H C-Reactive Protein Procalcitonin Urine Appearance Cloudy A Urine Glucose (UA) 150 A Urine Ketones 20 A Ur Leukocyte Esterase 500 A Urine RBC 4 H Urine WBC 170 H Hyaline Casts 4 H Urine Mucus Few A 06/08/22 06/07/22 06/07/22 05:52 12:01 11:51 WBC 12.1 H RDW 16.4 H Neut % (Auto) 78.3 H Lymph % (Auto) 8.8 L Lymph # (Auto) 1.06 L [place] # (Auto) 1.45 H Absolute Neutrophils 9.45 H POC VBG pH 7.43 H POC VBG pCO2 at Temp 39.6 L POC VBG pO2 43 H POC Venous O2 Sat 80.0 H Sodium Chloride Carbon Dioxide Anion Gap BUN Creatinine Glucose Hemoglobin A1c 8.6 H AST Alkaline Phosphatase C-Reactive Protein Procalcitonin Urine Appearance Urine Glucose (UA) Urine Ketones Ur Leukocyte Esterase Urine RBC Urine WBC Hyaline Casts Urine Mucus 06/07/22 06/07/22 06/07/22 11:51 11:51 11:51 WBC RDW Neut % (Auto) Lymph % (Auto) Lymph # (Auto) [place] # (Auto) Absolute Neutrophils POC VBG pH POC VBG pCO2 at Temp POC VBG pO2 POC Venous O2 Sat Sodium 129 L Chloride 92 L Carbon Dioxide Anion Gap BUN 31 H Creatinine Glucose 278 H Hemoglobin A1c AST Alkaline Phosphatase 119 H C-Reactive Protein 15.60 H Procalcitonin 1.43 H Urine Appearance Urine Glucose (UA) Urine Ketones Ur Leukocyte Esterase Urine RBC Urine WBC Hyaline Casts Urine Mucus 06/07/22 11:51 WBC 14.0 H RDW 16.2 H Neut % (Auto) 88.3 H Lymph % (Auto) 3.3 L Lymph # (Auto) 0.46 L [place] # (Auto) 0.99 H Absolute Neutrophils 12.36 H POC VBG pH POC VBG pCO2 at Temp POC VBG pO2 POC Venous O2 Sat Sodium Chloride Carbon Dioxide Anion Gap BUN Creatinine Glucose Hemoglobin A1c AST Alkaline Phosphatase C-Reactive Protein Procalcitonin Urine Appearance Urine Glucose (UA) Urine Ketones Ur Leukocyte Esterase Urine RBC Urine WBC Hyaline Casts Urine Mucus Meds: Medications Acetaminophen (Acetaminophen 325 Mg Tablet) 650 mg PO Q6HP PRN; Protocol PRN Reason: Per Pain Protocol/Fever > 101 Hydrocodone Bitart/Acetaminophen (Hydrocodone/Apap 5/325mg Tablet) 1 tab PO Q4HP PRN PRN Reason: PAIN LEVEL 3-6 Albuterol/Ipratropium (Ipratropium/Albuterol 3 Ml Ampul.Neb) 3 ml NEB Q8H [facility] Last Admin: 06/09/22 03:23 Dose: 3 ml Albuterol/Ipratropium (Ipratropium/Albuterol 3 Ml Ampul.Neb) 3 ml NEB Q4HP PRN PRN Reason: Shortness Of Breath Amlodipine Besylate (Amlodipine 5 Mg Tablet) 5 mg PO QDAY [facility] Last Admin: 06/08/22 08:07 Dose: 5 mg Ceftriaxone Sodium (Ceftriaxone 1 Gm Vial) 1 gm IV Q24H [facility] Last Admin: 06/09/22 05:50 Dose: 1 gm Citalopram Hydrobromide (Citalopram 20 Mg Tablet) 20 mg PO QDAY [facility] Last Admin: 06/08/22 08:07 Dose: 20 mg Dextrose (Dextrose 50% 50 Ml Vial) 0 ml IV UD PRN PRN Reason: Per Sliding Scale Diagnostic Test (Pha) (Accu-Chek 1 Each Strip) 1 each FS ACHS [facility] Last Admin: 06/09/22 07:11 Dose: 1 each Diphenhydramine HCl (Diphenhydramine 25 Mg Capsule) 25 mg PO HSP PRN PRN Reason: Insomnia Last Admin: 06/08/22 20:33 Dose: 25 mg Enoxaparin Sodium (Enoxaparin 40 Mg/0.4 Ml Syringe) 40 mg SQ DAILY [facility] Last Admin: 06/08/22 08:08 Dose: 40 mg Glucose (Dextrose 31 Gm Oral.Susp) 15 gm PO PRN PRN PRN Reason: Hypoglycemia Guaifenesin/Codeine Phosphate (Guaifenesin/Codeine 10 Ml Udc) 10 ml PO Q4HP PRN PRN Reason: Cough Last Admin: 06/08/22 06:06 Dose: 10 ml Azithromycin 500 mg/ Dextrose 250 mls @ 250 mls/hr IV Q24H [facility]; Protocol Stop: 06/09/22 09:59 Last Infusion: 06/08/22 10:45 Dose: Infused Potassium Chloride 40 meq/ (Dextrose) 520 mls @ 130 mls/hr IV UD PRN PRN Reason: Potassium < 3 Magnesium Sulfate (Magnesium Sulfate) 2 gm in 50 mls @ 50 mls/hr IV UD PRN PRN Reason: Magnesium </= 1.6 Insulin Glargine (Insulin Glargine, Human 1 Unit/0.01 Ml) 12 unit SQ BID [facility] Last Admin: 06/08/22 20:35 Dose: 12 units Insulin Human Lispro (Insulin Lispro 1 Unit/0.01 Ml Unit) 0 unit SQ ACHS [facility]; Protocol Last Admin: 06/09/22 07:11 Dose: Not Given Levothyroxine Sodium (Levothyroxine 88 Mcg Tablet) 88 mcg PO HS [facility] Last Admin: 06/08/22 20:33 Dose: 88 mcg Melatonin (Melatonin 3 Mg Tablet) 3 mg PO QHS [facility] Last Admin: 06/08/22 20:34 Dose: 3 mg Olanzapine (Olanzapine 5 Mg Tablet) 5 mg PO Q6 PRN PRN Reason: Agitation Last Admin: 06/09/22 00:21 Dose: 5 mg Omeprazole (Omeprazole 20 Mg Capsule) 40 mg PO ACB [facility] Last Admin: 06/09/22 07:14 Dose: 40 mg Ondansetron HCl (Ondansetron 4 Mg/2 Ml Vial) 4 mg IV Q4HP PRN PRN Reason: Nausea And Vomiting Pneumococcal Polyvalent Vaccine (Pneumococcal 23-Nathalia P-Sac Vac 0.5 Ml Syringe) 0.5 ml IM .ONCE ONE Stop: 06/10/22 09:01 Polyethylene Glycol (Polyethylene Glycol 3350 17 Gm Packet) 17 gm PO DAILYP PRN PRN Reason: Constipation Potassium Chloride (Potassium Chloride 20 Meq Tablet) 40 meq PO UD PRN PRN Reason: Potssium is 3-3.5 Potassium Chloride (Potassium Chloride 20 Meq Tablet) 40 meq PO UD PRN PRN Reason: Potassium < 3 Quetiapine Fumarate (Quetiapine 25 Mg Tablet) 25 mg PO ONCE ONE Stop: 06/08/22 22:57 Last Admin: 06/08/22 23:06 Dose: 25 mg Senna (Sennosides 1 Tablet) 2 tab PO DAILYP PRN PRN Reason: Constipation Sodium Chloride (0.9 % Sodium Chloride 10 Ml Syringe) 10 ml IV Q8 [facility] Last Admin: 06/09/22 05:50 Dose: 10 ml A/P Narrative A/P Narrative: A: *Acute hypoxic respiratory failure: -on 3L NC *Pneumonia (right-sided): -strep ur ag neg *Bacteremia(GPC in pairs): 2/2 above *UTI( ): *Sepsis: leukocytosis/tachycardia, improving *Delirium: 2/2 above -CT brain *Volume depletion: *NIKOLAS on CKD II: prerenal per FENa, did have contrast study -renal u/s no acute -no change *Met acidosis: *Hyponatremia: improving *DM: with hyperglycemia on admit -a1c 8.6 *HTN: *COPD(not on O2@home): former smoker *Hypothyroid: Continue levothyroxine *GERD: *Depression: cont ssri P: -IV abx, pending BC/SC, serial BC, mrsa screen neg -trend pct/crp, pending legionella -O2 supp, wean as able -IS/Acapella, prn nebs, RT -IVF, uop, -monitor renal fxn closely -CT brain -prn zyprexa -Continue home Norvasc, hold ARB for nikolas -Basal and SSI, -PT/OT -f/u imaging in 2-3 weeks to follow resolution of CT findings -ppx: Lovenox / home ppi DNR Time Spent With Patient Time: Total time spent is greater than 50% in coordination of care (as documented) at patient's floor/unit and/or counseling patient: Subsequent: Total time with patient: 50 - 65 Minutes QUALITY VTE Deep Vein Thrombosis/Pulmonary Embolism Present on Admission: No
[2022-06-09] MEDS ORDERED: OLANZapine 5 MG TABLET PO PRN (07:45)
[2022-06-09 07:46] LABS: ALT/SGPT 40 U/L (<40); AST/SGOT 40 U/L (<32); Albumin 3.6 gm/dL (3.2-5.2); Albumin/Globulin Ratio 1.1 (1.0-2.3); Alkaline Phosphatase 158 U/L (39-117); Bilirubin,Direct < 0.2 mg/dL (0-0.3); Bilirubin,Total 0.2 mg/dL (0.1-1.0); Blood Urea Nitrogen 57 mg/dL (8-23); Calcium 9.8 mg/dL (8.6-10.4); Carbon Dioxide 27 mmol/L (22-30); Chloride 98 mmol/L (96-108); Globulin 3.3 gm/dL (2.2-3.7); Glomerular Filtration Rate 34; Glucose 121 mg/dL (70-105); Lactate Dehydrogenase 220 U/L (135-225); Phosphorous 3.2 mg/dL (2.5-4.5); Triglycerides 111 mg/dL (<150); Uric Acid 7.6 mg/dL (2.5-8.0)
[2022-06-09] MEDS ORDERED: LORazepam 2 MG/ML VIAL IV STA (08:53)
[2022-06-09] MEDS: 0.9 % SODIUM CHLORIDE 1,000 ML IV SCH ×2 (08:54→19:28)
[2022-06-09] MEDS: INSULIN GLARGINE, HUMAN 1 UNIT/0.01 ML SQ SCH ×2 (08:55→20:57)
[2022-06-09] MEDS: CITALOPRAM 20 MG TABLET PO SCH (08:55)
[2022-06-09] MEDS: ENOXAPARIN 40 MG/0.4 ML SYRINGE SQ SCH (08:55)
[2022-06-09] MEDS: amLODIPine 5 MG TABLET PO SCH (08:55)
[2022-06-09] MEDS ORDERED: AZITHROMYCIN 250 MG TABLET PO SCH (09:00)
[2022-06-09] MEDS ORDERED: LORazepam 2 MG/ML VIAL ONE (09:03)
--- NOTE | 2022-06-09 12:40 | Cat Scan Report ---
CLINICAL INFORMATION: Delirium COMPARISON: None. TECHNIQUE: 2.5 mm helical slices were obtained in the skull base to vertex. Following reconstruction, axial reformatted images were reviewed at bone and parenchymal windows. The exam was performed using radiation dose optimization techniques including, but not limited to, automated exposure control, adjustment of the mA and/or kV according to patient size and use of iterative reconstruction technique. FINDINGS: The ventricles, sulci, fissures, and cisterns are symmetrically enlarged compatible with mild age-related atrophy. No extra-axial fluid collections are identified. Mild patchy chronic ischemic changes, in the deep cerebral white matter, are expected for age. There is no hemorrhage, mass effect, or edema. Bone windows show no osseous abnormality. IMPRESSION: Mild atrophy and chronic ischemic changes in the deep cerebral white matter-expected for age. No intracerebral acute findings Right maxillary sinus include images large air-fluid level noted there is also complete opacification of the right ethmoid moderate mucosal thickening left ethmoid air cells. Findings compatible with severe right maxillary and bilateral ethmoid sinusitis Interpreted and Authenticated by: Franco Mcdermott 06/09/22
--- NOTE | 2022-06-09 20:31 | EKG ---
[facility] Test Date: 2022-06-07 Pat Name: Rossana Rapp Department: ED Room: Gender: Female Watch Adjuster: SB : 1960 Requested By: Jaylon Estrada Order Number: [id number] Reading MD: Randall Ramsey Measurements Intervals [place] Rate: 105 P: 78 NE: 132 QRS: 93 QRSD: 91 T: 36 QT: 324 QTc: 430 Interpretive Statements Sinus tachycardia Probable left atrial enlargement ST elevation, consider anterior injury Electronically Signed On 06-09-2022 20:31:25 PST by Randall Ramsey /store/[email or web address]/[id number]
[2022-06-09] MEDS: diphenhydrAMINE 25 MG CAPSULE PO PRN (20:56)
[2022-06-09] MEDS: LEVOTHYROXINE 88 MCG TABLET PO SCH (20:56)
[2022-06-09] MEDS: MELATONIN 3 MG TABLET PO SCH (20:56)
[2022-06-09] MEDS ORDERED: HALOPERIDOL LACTATE 5 MG/ML VIAL ONE (22:26)
[2022-06-09] MEDS ORDERED: HALOPERIDOL LACTATE 5 MG/ML VIAL IV ONE (22:27)
[2022-06-10] MEDS: IPRATROPIUM/ALBUTEROL 3 ML AMPUL.NEB NEB SCH ×3 (03:23→19:18)
[2022-06-10] MEDS: cefTRIAXone 1 GM VIAL IV SCH (05:34)
[2022-06-10] MEDS: 0.9 % SODIUM CHLORIDE 10 ML SYRINGE IV SCH ×3 (05:34→21:15)
[2022-06-10] MEDS: OMEPRAZOLE 20 MG CAPSULE PO SCH (07:14)
[2022-06-10] MEDS: INSULIN LISPRO 1 UNIT/0.01 ML UNIT SQ SCH ×4 (07:17→21:29)
--- NOTE | 2022-06-10 07:32 | Internal Med Progress Note ---
SUBJECTIVE Subjective Patient information: Note initiated : 06/10/22 at 7:27 am Service Date, if different from initiated Date: [] Patient: Rossana Rapp a 61 y/o F admitted on 06/07/22 for oxygen check. Chief Complaint: [] Interval history: History of present illness: Ms. Rapp is a 61 year old F Presents to the to the urgent care for rhinorrhea severe headache insomnia as well as increased cough and shortness of breath for the past 3 days and hypoxia. Patient was then sent to the ER for hypoxia. Patient has taken a home COVID test which were negative x2. Originally she had a cold about a week ago which improved and then she went back to work but within a couple days she seemed to worsen again And her cough worsened feeling like it went down into her chest. She became significantly short of breath with walking. She can hardly sleep and has developed severe headache from all the coughing, which coughing keeps her up at night. She was a former smoker but does not carry an official diagnosis of COPD. In the ED she had saturations of 79% with a leukocytosis. She was hyponatremic hypochloremic. She had elevated blood glucose. She was tachycardic and tachypneic. CTA of the chest was done given the masslike findings on chest x-ray. The CTA showed no PEs but did show moderate consolidated infiltrates in the upper lobe as well as the lower lobe of the right side. CT also showed moderate emphysema Flu/RSV/COVID negative in ED She did have fevers and chills with a cold but has not had any of those for the past couple days. She has some pleuritic chest pain Her cough is described as a phlegmy cough but she is unable to cough up anything. 3/4 Still quite short of breath. Headache from cough which is slowly improving. Still tachycardic and tachypneic. On 2 to 3 L of oxygen. Leukocytosis. Acute kidney injury noted today. Acidosis. Elevated blood glucose and trying to clarify home insulin to start basal. 3/5 Patient agitated and confused overnight. Needed sedation to undergo CT brain this morning. Patient sleeping now. Still on 3L with sats mid 90s and can likely titrate down. Hyponatremia improved but renal function no improvement. Acidosis improved. 3/6 Patient became agitated and impulsive last night and required Haldol. Patient finally started sleeping around midnight. Patient awakened this morning and is calm and coherent. Has persistent cough. States shortness of breath. Both blood culture sets growing Streptococcus pneumoniae. Repeat blood cultures are negative. She is requiring 3 L of supplemental oxygen. Review of Systems: Unable to obtain due to sedation PHYSICAL EXAM General: Awake, no acute Distress Eyes/N/T: EOMI, no scleral icterus, Head/Neck: neck supple, full ROM, CV: RRR, No murmurs, Pulm: Diminished b/l especially on on right, right-sided Rales/rhonchi better, no wheezing no respiratory distress Abd: soft, nontender, +BS x4 Ext: no clubbing/cyanosis/edema, nontender Neuro: Alert, no focal deficits, moves all extremities spontaneously, calm and cooperative Psychiatric: Skin: warm/dry, normal color Constitutional Vitals: Vital Signs Temp Pulse Resp BP Pulse Ox O2 Del Method O2 Flow Rate 97.5 F 96 H 18 155/67 94 Oxymask 2.5 06/10/22 03:29 06/10/22 04:54 06/10/22 04:54 06/10/22 03:29 06/10/22 04:54 06/10/22 04:54 06/10/22 04:54 Period Temp Pulse Resp BP Sys/Ibarra Pulse Ox O2 Del Method O2 Flow Rate Last 24 Hr 97.5 F-98.2 F 84-106 16-22 131-167/67-81 89-97 Nasal Cannula- Oxymask, Bubble Humidifier 1-3 Intake and Output 06/09/22 06/10/22 06/10/22 19:59 03:59 11:59 Intake Total 1816 398 0535 Output Total 775 Balance 1000 25 1000 Weight 57.788 kg Intake & Output: Intake & Output 06/09/22 06/10/22 06/10/22 19:59 03:59 11:59 Intake Total 0248 648 6725 Output Total 775 Balance 1000 25 1000 Weight 57.788 kg Intake: IV 1000 1000 Sodium Chloride 0.9% 1,000 ml @ 1000 1000 100 mls/hr IV .Q10H [facility] Rx#: [id number] Oral 800 Output: Void Amount 775 Other: Meal Dinner Percent of Meal Consumed 25% Feeding Ability Independent Urine Appearance Clear Urine Color Yellow # Voids 4 OBJ DATA Labs 06/09/22 06:16 06/09/22 06:16 Labs: Abnormal Lab Results 06/09/22 06/09/22 06/08/22 06:16 06:16 10:20 WBC RDW 16.3 H Neut % (Auto) Lymph % (Auto) 12.6 L Lymph # (Auto) 1.20 L [place] # (Auto) 1.07 H Absolute Neutrophils POC VBG pH POC VBG pCO2 at Temp POC VBG pO2 POC Venous O2 Sat Sodium Chloride Carbon Dioxide Anion Gap BUN 57 H Creatinine 1.6 H Glucose 121 H Hemoglobin A1c AST 40 H ALT 40 H Alkaline Phosphatase 158 H C-Reactive Protein Procalcitonin Urine Appearance Cloudy A Urine Glucose (UA) 150 A Urine Ketones 20 A Ur Leukocyte Esterase 500 A Urine RBC 4 H Urine WBC 170 H Hyaline Casts 4 H Urine Mucus Few A 06/08/22 06/08/22 06/07/22 05:52 05:52 12:01 WBC 12.1 H RDW 16.4 H Neut % (Auto) 78.3 H Lymph % (Auto) 8.8 L Lymph # (Auto) 1.06 L [place] # (Auto) 1.45 H Absolute Neutrophils 9.45 H POC VBG pH 7.43 H POC VBG pCO2 at Temp 39.6 L POC VBG pO2 43 H POC Venous O2 Sat 80.0 H Sodium 129 L Chloride 92 L Carbon Dioxide 19 L Anion Gap 18.0 H BUN 55 H Creatinine 1.5 H Glucose 396 H Hemoglobin A1c AST 53 H ALT Alkaline Phosphatase 149 H C-Reactive Protein Procalcitonin Urine Appearance Urine Glucose (UA) Urine Ketones Ur Leukocyte Esterase Urine RBC Urine WBC Hyaline Casts Urine Mucus 06/07/22 06/07/22 06/07/22 11:51 11:51 11:51 WBC RDW Neut % (Auto) Lymph % (Auto) Lymph # (Auto) [place] # (Auto) Absolute Neutrophils POC VBG pH POC VBG pCO2 at Temp POC VBG pO2 POC Venous O2 Sat Sodium Chloride Carbon Dioxide Anion Gap BUN Creatinine Glucose Hemoglobin A1c 8.6 H AST ALT Alkaline Phosphatase C-Reactive Protein 15.60 H Procalcitonin 1.43 H Urine Appearance Urine Glucose (UA) Urine Ketones Ur Leukocyte Esterase Urine RBC Urine WBC Hyaline Casts Urine Mucus 06/07/22 06/07/22 11:51 11:51 WBC 14.0 H RDW 16.2 H Neut % (Auto) 88.3 H Lymph % (Auto) 3.3 L Lymph # (Auto) 0.46 L [place] # (Auto) 0.99 H Absolute Neutrophils 12.36 H POC VBG pH POC VBG pCO2 at Temp POC VBG pO2 POC Venous O2 Sat Sodium 129 L Chloride 92 L Carbon Dioxide Anion Gap BUN 31 H Creatinine Glucose 278 H Hemoglobin A1c AST ALT Alkaline Phosphatase 119 H C-Reactive Protein Procalcitonin Urine Appearance Urine Glucose (UA) Urine Ketones Ur Leukocyte Esterase Urine RBC Urine WBC Hyaline Casts Urine Mucus Meds: Medications Acetaminophen (Acetaminophen 325 Mg Tablet) 650 mg PO Q6HP PRN; Protocol PRN Reason: Per Pain Protocol/Fever > 101 Hydrocodone Bitart/Acetaminophen (Hydrocodone/Apap 5/325mg Tablet) 1 tab PO Q4HP PRN PRN Reason: PAIN LEVEL 3-6 Last Admin: 06/09/22 20:55 Dose: 1 tab Albuterol/Ipratropium (Ipratropium/Albuterol 3 Ml Ampul.Neb) 3 ml NEB Q8H [facility] Last Admin: 06/10/22 03:23 Dose: 3 ml Albuterol/Ipratropium (Ipratropium/Albuterol 3 Ml Ampul.Neb) 3 ml NEB Q4HP PRN PRN Reason: Shortness Of Breath Amlodipine Besylate (Amlodipine 5 Mg Tablet) 5 mg PO QDAY [facility] Last Admin: 06/09/22 08:55 Dose: 5 mg Ceftriaxone Sodium (Ceftriaxone 1 Gm Vial) 1 gm IV Q24H [facility] Last Admin: 06/10/22 05:34 Dose: 1 gm Citalopram Hydrobromide (Citalopram 20 Mg Tablet) 20 mg PO QDAY [facility] Last Admin: 06/09/22 08:55 Dose: 20 mg Dextrose (Dextrose 50% 50 Ml Vial) 0 ml IV UD PRN PRN Reason: Per Sliding Scale Diagnostic Test (Pha) (Accu-Chek 1 Each Strip) 1 each FS ACHS [facility] Last Admin: 06/10/22 07:17 Dose: 1 each Diphenhydramine HCl (Diphenhydramine 25 Mg Capsule) 25 mg PO HSP PRN PRN Reason: Insomnia Last Admin: 06/09/22 20:56 Dose: 25 mg Enoxaparin Sodium (Enoxaparin 40 Mg/0.4 Ml Syringe) 40 mg SQ DAILY [facility] Last Admin: 06/09/22 08:55 Dose: 40 mg Glucose (Dextrose 31 Gm Oral.Susp) 15 gm PO PRN PRN PRN Reason: Hypoglycemia Guaifenesin/Codeine Phosphate (Guaifenesin/Codeine 10 Ml Udc) 10 ml PO Q4HP PRN PRN Reason: Cough Last Admin: 06/08/22 06:06 Dose: 10 ml Potassium Chloride 40 meq/ (Dextrose) 520 mls @ 130 mls/hr IV UD PRN PRN Reason: Potassium < 3 Magnesium Sulfate (Magnesium Sulfate) 2 gm in 50 mls @ 50 mls/hr IV UD PRN PRN Reason: Magnesium </= 1.6 Insulin Glargine (Insulin Glargine, Human 1 Unit/0.01 Ml) 12 unit SQ BID [facility] Last Admin: 06/09/22 20:57 Dose: 12 units Insulin Human Lispro (Insulin Lispro 1 Unit/0.01 Ml Unit) 0 unit SQ ACHS [facility]; Protocol Last Admin: 06/10/22 07:17 Dose: Not Given Levothyroxine Sodium (Levothyroxine 88 Mcg Tablet) 88 mcg PO HS [facility] Last Admin: 06/09/22 20:56 Dose: 88 mcg Melatonin (Melatonin 3 Mg Tablet) 3 mg PO QHS [facility] Last Admin: 06/09/22 20:56 Dose: 3 mg Olanzapine (Olanzapine 5 Mg Tablet) 5 mg PO Q6HP PRN PRN Reason: Agitation Last Admin: 06/09/22 20:56 Dose: 5 mg Omeprazole (Omeprazole 20 Mg Capsule) 40 mg PO ACB [facility] Last Admin: 06/10/22 07:14 Dose: 40 mg Ondansetron HCl (Ondansetron 4 Mg/2 Ml Vial) 4 mg IV Q4HP PRN PRN Reason: Nausea And Vomiting Pneumococcal Polyvalent Vaccine (Pneumococcal 23-Nathalia P-Sac Vac 0.5 Ml Syringe) 0.5 ml IM .ONCE ONE Stop: 06/10/22 09:01 Polyethylene Glycol (Polyethylene Glycol 3350 17 Gm Packet) 17 gm PO DAILYP PRN PRN Reason: Constipation Potassium Chloride (Potassium Chloride 20 Meq Tablet) 40 meq PO UD PRN PRN Reason: Potssium is 3-3.5 Potassium Chloride (Potassium Chloride 20 Meq Tablet) 40 meq PO UD PRN PRN Reason: Potassium < 3 Senna (Sennosides 1 Tablet) 2 tab PO DAILYP PRN PRN Reason: Constipation Sodium Chloride (0.9 % Sodium Chloride 10 Ml Syringe) 10 ml IV Q8 [facility] Last Admin: 06/10/22 05:34 Dose: 10 ml A/P Narrative A/P Narrative: A: *Acute hypoxic respiratory failure: -on 2-3L NC, not much progress yet *Pneumonia (right-sided): seems to be streptococcal - *Bacteremia(Strepotoccus pne): 2/2 above -repeat BC neg *UTI( ): *Sepsis: leukocytosis/tachycardia, improving *Delirium: 2/2 above. worse at night -CT brain with mild atrophy and chronic ischemic changes, sinusitis *Volume depletion: improved *NIKOLAS on CKD II: prerenal per FENa, did have contrast study, better -renal u/s no acute -no change *Met acidosis: improving *Hyponatremia: improving *DM: with hyperglycemia on admit -a1c 8.6 *HTN: *COPD(not on O2@home): former smoker *Hypothyroid: Continue levothyroxine *GERD: *Depression: cont ssri P: -IV abx, pending final BC/SC, serial BC, mrsa screen neg -trend pct/crp, -O2 supp, wean as able -IS/Acapella, prn nebs, RT -IVF hold, uop, -monitor renal fxn closely -prn zyprexa -Continue home Norvasc, hold ARB for nikolas and restart as able -Basal and SSI, -PT/OT -f/u imaging in 2-3 weeks to follow resolution of CT findings -ppx: Lovenox / home ppi DNR Time Spent With Patient Time: Total time spent is greater than 50% in coordination of care (as documented) at patient's floor/unit and/or counseling patient: QUALITY VTE Deep Vein Thrombosis/Pulmonary Embolism Present on Admission: No
[2022-06-10] MEDS: INSULIN GLARGINE, HUMAN 1 UNIT/0.01 ML SQ SCH ×2 (08:12→21:30)
[2022-06-10] MEDS: ENOXAPARIN 40 MG/0.4 ML SYRINGE SQ SCH (08:13)
[2022-06-10] MEDS: CITALOPRAM 20 MG TABLET PO SCH (08:13)
[2022-06-10] MEDS: amLODIPine 5 MG TABLET PO SCH (08:13)
[2022-06-10 08:17] LABS: ALT/SGPT 38 U/L (<40); AST/SGOT 40 U/L (<32); Albumin 3.1 gm/dL (3.2-5.2); Albumin/Globulin Ratio 1.1 (1.0-2.3); Alkaline Phosphatase 142 U/L (39-117); Bilirubin,Direct < 0.2 mg/dL (0-0.3); Bilirubin,Total < 0.2 mg/dL (0.1-1.0); Blood Urea Nitrogen 27 mg/dL (8-23); Calcium 9.1 mg/dL (8.6-10.4); Carbon Dioxide 28 mmol/L (22-30); Chloride 108 mmol/L (96-108); Globulin 2.7 gm/dL (2.2-3.7); Glomerular Filtration Rate 92; Glucose 67 mg/dL (70-105); Lactate Dehydrogenase 185 U/L (135-225); Phosphorous 3.5 mg/dL (2.5-4.5); Triglycerides 95 mg/dL (<150); Uric Acid 6.2 mg/dL (2.5-8.0)
[2022-06-10] MEDS ORDERED: PNEUMOCOCCAL 23-VAL P-SAC VAC 0.5 ML SYRINGE IM ONE (09:00)
--- NOTE | 2022-06-10 12:58 | Internal Med Progress Note ---
SUBJECTIVE Subjective Patient information: Note initiated : 06/10/22 at 12:49 pm Service Date, if different from initiated Date: [] Patient: Rossana Rapp a 61 y/o F admitted on 06/07/22 for oxygen check. Chief Complaint: [] Interval history: History of present illness: Ms. Rapp is a 61 year old F Presents to the to the urgent care for rhinorrhea severe headache insomnia as well as increased cough and shortness of breath for the past 3 days and hypoxia. Patient was then sent to the ER for hypoxia. Patient has taken a home COVID test which were negative x2. Originally she had a cold about a week ago which improved and then she went back to work but within a couple days she seemed to worsen again And her cough worsened feeling like it went down into her chest. She became significantly short of breath with walking. She can hardly sleep and has developed severe headache from all the coughing, which coughing keeps her up at night. She was a former smoker but does not carry an official diagnosis of COPD. In the ED she had saturations of 79% with a leukocytosis. She was hyponatremic hypochloremic. She had elevated blood glucose. She was tachycardic and tachypneic. CTA of the chest was done given the masslike findings on chest x-ray. The CTA showed no PEs but did show moderate consolidated infiltrates in the upper lobe as well as the lower lobe of the right side. CT also showed moderate emphysema Flu/RSV/COVID negative in ED She did have fevers and chills with a cold but has not had any of those for the past couple days. She has some pleuritic chest pain Her cough is described as a phlegmy cough but she is unable to cough up anything. 3/4 Still quite short of breath. Headache from cough which is slowly improving. Still tachycardic and tachypneic. On 2 to 3 L of oxygen. Leukocytosis. Acute kidney injury noted today. Acidosis. Elevated blood glucose and trying to clarify home insulin to start basal. 3 Patient agitated and confused overnight. Needed sedation to undergo CT brain this morning. Patient sleeping now. Still on 3L with sats mid 90s and can likely titrate down. Hyponatremia improved but renal function no improvement. Acidosis improved. 6 Patient became agitated and impulsive last night and required Haldol. Patient finally started sleeping around midnight. Patient awakened this morning and is calm and coherent. Has persistent cough. States shortness of breath. Both blood culture sets growing Streptococcus pneumoniae. Repeat blood cultures are negative. She is requiring 3 L of supplemental oxygen. 06/11 Physical exam Head: Atraumatic, normal inspection. Eyes: normal appearance, no scleral icterus. Neck: full ROM Respiratory: no respiratory distress. Cardiovascular: normal rate and rhythm, S1, S2. GI/Abdominal: soft, nontender, no guarding. Extremities: full range of motion, nontender. Neurological: CN II-XII intact, intact motor, intact sensation. Psychiatric: normal mood. Skin: warm, normal color Constitutional Vitals: Vital Signs Temp Pulse Resp BP Pulse Ox O2 Del Method O2 Flow Rate 97.9 F 78 16 140/85 93 Oxymask 3 06/10/22 08:00 06/10/22 10:25 06/10/22 10:25 06/10/22 08:00 06/10/22 10:25 06/10/22 10:25 06/10/22 10:25 Period Temp Pulse Resp BP Sys/Ibarra Pulse Ox O2 Del Method O2 Flow Rate Last 24 Hr 97.5 F-98.2 F 78-106 16-22 131-167/67-85 88-97 Nasal Cannula- Oxymask, Bubble Humidifier 2-3 Intake and Output 06/10/22 06/10/22 06/10/22 03:59 11:59 19:59 Intake Total 800 1000 Output Total 775 300 Balance 25 1000 -300 Intake & Output: Intake & Output 06/10/22 06/10/22 06/10/22 03:59 11:59 19:59 Intake Total 800 1000 Output Total 775 300 Balance 25 1000 -300 Intake: IV 1000 Sodium Chloride 0.9% 1,000 ml @ 1000 100 mls/hr IV .Q10H [facility] Rx#: [id number] Oral 800 Output: Void Amount 775 300 Other: Urine Appearance Clear Clear Clear Urine Color Yellow Yellow Yellow Urine Odor Normal OBJ DATA Labs 06/09/22 06:16 06/10/22 05:52 Labs: Abnormal Lab Results 06/10/22 06/10/22 06/09/22 05:52 05:52 06:16 WBC RDW Neut % (Auto) Lymph % (Auto) Lymph # (Auto) [place] # (Auto) Absolute Neutrophils Sodium Chloride Carbon Dioxide Anion Gap BUN 27 H 57 H Creatinine 1.6 H Glucose 67 L 121 H Hemoglobin A1c GGT 42 H AST 40 H 40 H ALT 40 H Alkaline Phosphatase 142 H 158 H C-Reactive Protein Total Protein 5.8 L Albumin 3.1 L Procalcitonin 1.33 H Urine Appearance Urine Glucose (UA) Urine Ketones Ur Leukocyte Esterase Urine RBC Urine WBC Hyaline Casts Urine Mucus 06/09/22 06/08/22 06/08/22 06:16 10:20 05:52 WBC RDW 16.3 H Neut % (Auto) Lymph % (Auto) 12.6 L Lymph # (Auto) 1.20 L [place] # (Auto) 1.07 H Absolute Neutrophils Sodium 129 L Chloride 92 L Carbon Dioxide 19 L Anion Gap 18.0 H BUN 55 H Creatinine 1.5 H Glucose 396 H Hemoglobin A1c GGT AST 53 H ALT Alkaline Phosphatase 149 H C-Reactive Protein Total Protein Albumin Procalcitonin Urine Appearance Cloudy A Urine Glucose (UA) 150 A Urine Ketones 20 A Ur Leukocyte Esterase 500 A Urine RBC 4 H Urine WBC 170 H Hyaline Casts 4 H Urine Mucus Few A 06/08/22 06/07/22 06/07/22 05:52 11:51 11:51 WBC 12.1 H RDW 16.4 H Neut % (Auto) 78.3 H Lymph % (Auto) 8.8 L Lymph # (Auto) 1.06 L [place] # (Auto) 1.45 H Absolute Neutrophils 9.45 H Sodium Chloride Carbon Dioxide Anion Gap BUN Creatinine Glucose Hemoglobin A1c 8.6 H GGT AST ALT Alkaline Phosphatase C-Reactive Protein Total Protein Albumin Procalcitonin 1.43 H Urine Appearance Urine Glucose (UA) Urine Ketones Ur Leukocyte Esterase Urine RBC Urine WBC Hyaline Casts Urine Mucus 06/07/22 06/07/22 06/07/22 11:51 11:51 11:51 WBC 14.0 H RDW 16.2 H Neut % (Auto) 88.3 H Lymph % (Auto) 3.3 L Lymph # (Auto) 0.46 L [place] # (Auto) 0.99 H Absolute Neutrophils 12.36 H Sodium 129 L Chloride 92 L Carbon Dioxide Anion Gap BUN 31 H Creatinine Glucose 278 H Hemoglobin A1c GGT AST ALT Alkaline Phosphatase 119 H C-Reactive Protein 15.60 H Total Protein Albumin Procalcitonin Urine Appearance Urine Glucose (UA) Urine Ketones Ur Leukocyte Esterase Urine RBC Urine WBC Hyaline Casts Urine Mucus Meds: Medications Acetaminophen (Acetaminophen 325 Mg Tablet) 650 mg PO Q6HP PRN; Protocol PRN Reason: Per Pain Protocol/Fever > 101 Hydrocodone Bitart/Acetaminophen (Hydrocodone/Apap 5/325mg Tablet) 1 tab PO Q4HP PRN PRN Reason: PAIN LEVEL 3-6 Last Admin: 06/09/22 20:55 Dose: 1 tab Albuterol/Ipratropium (Ipratropium/Albuterol 3 Ml Ampul.Neb) 3 ml NEB Q8H [facility] Last Admin: 06/10/22 10:26 Dose: 3 ml Albuterol/Ipratropium (Ipratropium/Albuterol 3 Ml Ampul.Neb) 3 ml NEB Q4HP PRN PRN Reason: Shortness Of Breath Amlodipine Besylate (Amlodipine 5 Mg Tablet) 5 mg PO QDAY [facility] Last Admin: 06/10/22 08:13 Dose: 5 mg Ceftriaxone Sodium (Ceftriaxone 1 Gm Vial) 1 gm IV Q24H [facility] Last Admin: 06/10/22 05:34 Dose: 1 gm Citalopram Hydrobromide (Citalopram 20 Mg Tablet) 20 mg PO QDAY [facility] Last Admin: 06/10/22 08:13 Dose: 20 mg Dextrose (Dextrose 50% 50 Ml Vial) 0 ml IV UD PRN PRN Reason: Per Sliding Scale Diagnostic Test (Pha) (Accu-Chek 1 Each Strip) 1 each FS ACHS [facility] Last Admin: 06/10/22 11:30 Dose: 1 each Diphenhydramine HCl (Diphenhydramine 25 Mg Capsule) 25 mg PO HSP PRN PRN Reason: Insomnia Last Admin: 06/09/22 20:56 Dose: 25 mg Enoxaparin Sodium (Enoxaparin 40 Mg/0.4 Ml Syringe) 40 mg SQ DAILY [facility] Last Admin: 06/10/22 08:13 Dose: 40 mg Glucose (Dextrose 31 Gm Oral.Susp) 15 gm PO PRN PRN PRN Reason: Hypoglycemia Guaifenesin/Codeine Phosphate (Guaifenesin/Codeine 10 Ml Udc) 10 ml PO Q4HP PRN PRN Reason: Cough Last Admin: 06/08/22 06:06 Dose: 10 ml Potassium Chloride 40 meq/ (Dextrose) 520 mls @ 130 mls/hr IV UD PRN PRN Reason: Potassium < 3 Magnesium Sulfate (Magnesium Sulfate) 2 gm in 50 mls @ 50 mls/hr IV UD PRN PRN Reason: Magnesium </= 1.6 Insulin Glargine (Insulin Glargine, Human 1 Unit/0.01 Ml) 12 unit SQ BID [facility] Last Admin: 06/10/22 08:12 Dose: 12 units Insulin Human Lispro (Insulin Lispro 1 Unit/0.01 Ml Unit) 0 unit SQ ACHS [facility]; Protocol Last Admin: 06/10/22 11:30 Dose: Not Given Levothyroxine Sodium (Levothyroxine 88 Mcg Tablet) 88 mcg PO HS [facility] Last Admin: 06/09/22 20:56 Dose: 88 mcg Melatonin (Melatonin 3 Mg Tablet) 3 mg PO QHS [facility] Last Admin: 06/09/22 20:56 Dose: 3 mg Olanzapine (Olanzapine 5 Mg Tablet) 5 mg PO Q6HP PRN PRN Reason: Agitation Last Admin: 06/09/22 20:56 Dose: 5 mg Omeprazole (Omeprazole 20 Mg Capsule) 40 mg PO ACB [facility] Last Admin: 06/10/22 07:14 Dose: 40 mg Ondansetron HCl (Ondansetron 4 Mg/2 Ml Vial) 4 mg IV Q4HP PRN PRN Reason: Nausea And Vomiting Polyethylene Glycol (Polyethylene Glycol 3350 17 Gm Packet) 17 gm PO DAILYP PRN PRN Reason: Constipation Potassium Chloride (Potassium Chloride 20 Meq Tablet) 40 meq PO UD PRN PRN Reason: Potssium is 3-3.5 Potassium Chloride (Potassium Chloride 20 Meq Tablet) 40 meq PO UD PRN PRN Reason: Potassium < 3 Senna (Sennosides 1 Tablet) 2 tab PO DAILYP PRN PRN Reason: Constipation Sodium Chloride (0.9 % Sodium Chloride 10 Ml Syringe) 10 ml IV Q8 [facility] Last Admin: 06/10/22 05:34 Dose: 10 ml A/P Narrative A/P Narrative: Assessment:61-year-old female with a history of diabetes mellitus, hypertension, COPD, hypothyroidism, GERD, depression admitted for acute hypoxic respiratory failure secondary to right-sided community-acquired pneumonia complicated by Streptococcus pneumonia bacteremia. *Severe sepsis secondary to pneumonia complicated by acute hypoxic respiratory failure, acute kidney injury, and encephalopathy *Acute hypoxic respiratory failure secondary to pneumonia: -on 2-3L NC, not much progress yet *Community-acquired pneumonia secondary to Streptococcus pneumonia *Streptococcus pneumonia bacteremia secondary to community-acquired pneumonia -repeat BC neg *Possible UTI versus bacteriuria *Septic encephalopathy secondary to causing delirium -CT brain with mild atrophy and chronic ischemic changes, sinusitis *NIKOLAS on CKD II: prerenal per FENa, did have contrast study, better -renal u/s no acute -no change *Met acidosis: improving *Hyponatremia: improving *DM: with hyperglycemia on admit -a1c 8.6 *HTN: *COPD(not on O2@home): former smoker *Hypothyroid: Continue levothyroxine *GERD: *Depression: cont ssri P: -IV abx, pending final BC/SC, serial BC, mrsa screen neg -trend pct/crp, -O2 supp, wean as able -IS/Acapella, prn nebs, RT -IVF hold, uop, -monitor renal fxn closely -prn zyprexa -Continue home Norvasc, hold ARB for nikolas and restart as able -Basal and SSI, -PT/OT -f/u imaging in 2-3 weeks to follow resolution of CT findings -ppx: Lovenox / home ppi -CODE STATUS: DNR/DNI Time Spent With Patient Time: Total time spent is greater than 50% in coordination of care (as documented) at patient's floor/unit and/or counseling patient: QUALITY VTE Deep Vein Thrombosis/Pulmonary Embolism Present on Admission: No
[2022-06-10] MEDS: LEVOTHYROXINE 88 MCG TABLET PO SCH (21:14)
[2022-06-10] MEDS: MELATONIN 3 MG TABLET PO SCH (21:14)
[2022-06-11] MEDS: IPRATROPIUM/ALBUTEROL 3 ML AMPUL.NEB NEB SCH ×2 (03:45→10:24)
[2022-06-11] MEDS: 0.9 % SODIUM CHLORIDE 10 ML SYRINGE IV SCH ×2 (05:53→15:17)
[2022-06-11] MEDS: cefTRIAXone 1 GM VIAL IV SCH (05:53)
[2022-06-11] MEDS: INSULIN LISPRO 1 UNIT/0.01 ML UNIT SQ SCH ×2 (07:05→11:42)
[2022-06-11 07:34] LABS: ALT/SGPT 34 U/L (<40); AST/SGOT 33 U/L (<32); Albumin 3.1 gm/dL (3.2-5.2); Albumin/Globulin Ratio 1.2 (1.0-2.3); Alkaline Phosphatase 143 U/L (39-117); Bilirubin,Direct < 0.2 mg/dL (0-0.3); Bilirubin,Total 0.2 mg/dL (0.1-1.0); Blood Urea Nitrogen 13 mg/dL (8-23); Calcium 9.3 mg/dL (8.6-10.4); Carbon Dioxide 32 mmol/L (22-30); Chloride 103 mmol/L (96-108); Globulin 2.6 gm/dL (2.2-3.7); Glomerular Filtration Rate 97; Glucose 90 mg/dL (70-105); Lactate Dehydrogenase 230 U/L (135-225); Phosphorous 2.6 mg/dL (2.5-4.5); Triglycerides 104 mg/dL (<150)
[2022-06-11] MEDS: OMEPRAZOLE 20 MG CAPSULE PO SCH (07:55)
[2022-06-11] MEDS ORDERED: cefTRIAXone 1 GM VIAL IV SCH (08:10)
[2022-06-11] MEDS ORDERED: MAGNESIUM SULFATE 2 GM/50 ML BAG IV ONE (08:10)
[2022-06-11] MEDS ORDERED: cefTRIAXone 1 GM VIAL IV ONE (08:15)
[2022-06-11] MEDS: ENOXAPARIN 40 MG/0.4 ML SYRINGE SQ SCH (09:15)
[2022-06-11] MEDS: amLODIPine 5 MG TABLET PO SCH (09:16)
[2022-06-11] MEDS: INSULIN GLARGINE, HUMAN 1 UNIT/0.01 ML SQ SCH (09:16)
[2022-06-11] MEDS: CITALOPRAM 20 MG TABLET PO SCH (09:16)
[2022-06-11] MEDS ORDERED: ALBUTEROL SULFATE 60 PUFF INHALER INH PRN (10:32)
--- NOTE | 2022-06-11 12:29 | Discharge Summary ---
Discharge Provider Provider IMPORTANT FOLLOW-UP INFORMATION FOR PCP: Patient information: Note initiated : 06/11/22 at 12:26 pm Service Date, if different from initiated Date: [] Patient: Rossana Rapp a 61 y/o F admitted on 06/07/22 for oxygen check. Chief Complaint: [] Date of admission: 06/07/22 18:49 Discharge date: 06/11/22 Primary care physician: Floyd Norman PA-C Consults: 06/07/22 Consult to Physician [CONS] Stat Comment: Consulting Provider: Jair Silva Reason For Exam: Physician to Consult COURSE Hospital Course Hospital course: Ms. Rapp is a 61 year old F Presents to the to the urgent care for rhinorrhea severe headache insomnia as well as increased cough and shortness of breath for the past 3 days and hypoxia. Patient was then sent to the ER for hypoxia. Patient has taken a home COVID test which were negative x2. Originally she had a cold about a week ago which improved and then she went back to work but within a couple days she seemed to worsen again And her cough worsened feeling like it went down into her chest. She became significantly short of breath with walking. She can hardly sleep and has developed severe headache from all the coughing, which coughing keeps her up at night. She was a former smoker but does not carry an official diagnosis of COPD. In the ED she had saturations of 79% with a leukocytosis. She was hyponatremic hypochloremic. She had elevated blood glucose. She was tachycardic and tachypneic. CTA of the chest was done given the masslike findings on chest x-ray. The CTA showed no PEs but did show moderate consolidated infiltrates in the upper lobe as well as the lower lobe of the right side. CT also showed moderate emphysema Flu/RSV/COVID negative in ED She did have fevers and chills with a cold but has not had any of those for the past couple days. She has some pleuritic chest pain Her cough is described as a phlegmy cough but she is unable to cough up anything. 3/4 Still quite short of breath. Headache from cough which is slowly improving. Still tachycardic and tachypneic. On 2 to 3 L of oxygen. Leukocytosis. Acute kidney injury noted today. Acidosis. Elevated blood glucose and trying to clarify home insulin to start basal. 3/5 Patient agitated and confused overnight. Needed sedation to undergo CT brain this morning. Patient sleeping now. Still on 3L with sats mid 90s and can likely titrate down. Hyponatremia improved but renal function no improvement. Acidosis improved. 06/10 Patient became agitated and impulsive last night and required Haldol. Patient finally started sleeping around midnight. Patient awakened this morning and is calm and coherent. Has persistent cough. States shortness of breath. Both blood culture sets growing Streptococcus pneumoniae. Repeat blood cultures are negative. She is requiring 3 L of supplemental oxygen. 06/11 No agitation overnight, the patient is alert and oriented today. Oxygen requirement weaned down to 2 L/min, no signs of respiratory distress. Acute kidney injury has resolved. Repeat blood culture showing no growth to date at 48 hours. Transthoracic echocardiogram completed today, report pending. Physical therapy feels the patient can safely discharged home. Home oxygen evaluation completed, the patient require 2 L/min nasal cannula oxygen supplementation. Respiratory therapy instructed the patient in albuterol MDI inhaler technique. The patient will discharge on cefuroxime to complete 14 days of antibiotic treatment. The patient will follow-up with her primary care provider after hospital discharge, request the patient's PCP follow-up on the pending echocardiogram report. Physical exam Head: Atraumatic, normal inspection. Eyes: normal appearance, no scleral icterus. Neck: full ROM Respiratory: Nasal cannula oxygen supplementation, right basilar crackles, no accessory muscle use. Cardiovascular: normal rate and rhythm, S1, S2. GI/Abdominal: soft, nontender, no guarding. Extremities: full range of motion, nontender. Neurological: CN II-XII intact, intact motor, intact sensation. Psychiatric: normal mood. Skin: warm, normal color Discharge diagnosis: Sepsis secondary to community-acquired pneumonia and bacteremia Secondary discharge diagnosis: Streptococcus pneumonia bacteremia secondary to pneumonia Acute kidney injury Time Spent with Patient Time attestation: Total time spent providing and/or coordinating discharge services: Time spent: Greater than 30 minutes EXAM Constitutional Vitals: Temp Pulse Resp BP Pulse Ox O2 Del Method O2 Flow Rate 99.0 F 72 18 121/64 97 Nasal Cannula 3 06/11/22 08:00 06/11/22 10:36 06/11/22 10:36 06/11/22 08:00 06/11/22 10:36 06/11/22 10:36 06/11/22 10:36 Discharge Data Data Completed and Pending Labs on day of discharge: Labs from last 24 hours 06/11/22 06/11/22 05:39 05:39 Sodium 143 Potassium 3.9 Chloride 103 Carbon Dioxide 32 H Anion Gap 8.0 BUN 13 Creatinine 0.6 GFR Calculation 97 Glucose 90 Uric Acid 4.0 Calcium 9.3 Phosphorus 2.6 Magnesium 1.5 L Total Bilirubin 0.2 Direct Bilirubin < 0.2 GGT 45 H AST 33 H ALT 34 Alkaline Phosphatase 143 H Lactate Dehydrogenase 230 H Total Protein 5.7 L Albumin 3.1 L Globulin 2.6 Albumin/Globulin Ratio 1.2 Triglycerides 104 Procalcitonin 0.57 H Preliminary micro results at discharge 06/09/22 06:13 Blood Culture - Preliminary Blood 06/09/22 06:10 Blood Culture - Preliminary Blood 06/08/22 10:20 Urine Culture - Preliminary Urine - Clean Void Mid-Stream Discharge Plan Patient/Caregiver Discharge Instructions Activity: increase activity as tolerated Diet: Consistent Carbohydrate Prescriptions: New cefuroxime axetil 500 mg tablet 500 mg PO BID 10 Days Qty: 20 0RF albuterol sulfate [Ventolin HFA] 90 mcg/actuation Hfa Aerosol Inhaler 2 puff inhalation Q4HP PRN (Reason: Shortness Of Breath) Qty: 8.5 4RF Continued melatonin 5 mg tablet 5 mg PO HS insulin aspart U-100 [Novolog U-100 Insulin aspart] 100 unit/mL solution See Rx Instructions SUB-Q QDAY Patient Comments: Carb counting ratia of 1/12 and corection of 1/40. On 10 hour work days carb counting to be 1/14. TDD 9-11u SUB-Q QDAY; Rx Instructions: Carb counting ratia of 1/12 and corection of 1/40. On 10 hour work days carb counting to be 1/14. TDD 9-11u SUB-Q QDAY; ascorbic acid (vitamin C) 1,000 mg tablet 2 g PO QDAY cinnamon bark 500 mg capsule 1,000 mg PO QDAY cyanocobalamin (vitamin B-12) 1,000 mcg capsule 1,000 mcg capsule 1,000 mcg PO QDAY Culturelle 10 billion cell capsule 1 cap PO QDAY amlodipine 5 mg tablet 5 mg PO QDAY citalopram 20 mg tablet 20 mg PO QDAY omeprazole 40 mg capsule,delayed release(DR/EC) 40 mg PO QDAY losartan 50 mg tablet 100 mg PO DAILY levothyroxine 88 MCG tablet 88 mcg PO HS pioglitazone 30 MG tablet 30 mg PO DAILY valerian root 500 mg capsule 1,000 mg PO HS insulin detemir U-100 100 unit/mL solution See Rx Instructions .ROUTE .COMPLEX Patient Comments: SQ BID ; Rx Instructions: SQ BID ; wl-tod-wkxug-calcium carb-K1 400 mcg-500 mg calcium-20 mcg Tablet 1 tab PO DAILY psyllium husk [Metamucil] 0.4 gram Capsule 0.4 g PO QDAY PRN (Reason: Constipation) (DME) blood sugar diagnostic Strip MISCELLANEOUS No Action (DME) insulin syringe-needle U-100 [Insulin Syringe] 0.5 mL 30 gauge x 5/16" Syringe MISCELLANEOUS Follow Up Plan Follow up with: Floyd Norman PA-C [Primary Care Provider] - Patient Disposition: Home, Self-Care Overall status at discharge: patient is progressing back to baseline Discharge Orders: Discharge Order (Routine); Ordered 06/11/22 Ordered By: Owen Tejada QUALITY VTE Deep Vein Thrombosis/Pulmonary Embolism Present on Admission: No
[2022-06-12] MEDS ORDERED: cefTRIAXone 2 GM in DEXTROSE 5% IN WATER 50 ML IV SCH (09:00)
== END 2022-06-11 16:15 | disposition home or self-care (01) | DRG 871 ==
LOC: ED 11:01 → MEDSUR 18:49
PROVIDERS: ADMIT Internal Medicine; ATTEND Internal Medicine